=== PATIENT | male | born 1970 | race Caucasian/White ===

== ENCOUNTER → 2017-06-12 14:43 | Outpatient (CLI) | payer MEDICARE, SELFPAY ==
[2017-06-12 16:01] LABS: Absolute Lymphocyte Count 2.76 X10^3/ul (0.83-4.51); Absolute Neutrophil Count 3.3 X10^3/uL (2.0-7.7); Basophil# 0.03 X10^3/uL; Basophil% 0.4 % (0-1); Eosinophil# 0.12 X10^3/uL; Eosinophils% 1.7 % (0-5); Hematocrit 46.1 % (40-54); Lymphocyte # 2.76 X10^3/ul (4.0); Lymphocyte % 38.9 % (19-41); Mean Corp Hgb Conc 34.7 g/gl (32-36); Mean Corpuscular Hgb 27.7 pg (27.0-32.0); Mean Corpuscular Volume 79.9 fL (80-94); Mean Platelet Vol. 10.4 fl (6.2-12.0); Monocyte# 0.88 X10^3/uL; Monocyte% 12.4 % (0-10); Neutrophil % 46.5 % (47-70); Platelet Count 281 K/mm3 (150-450); RBC Distribution Width CV 13.3 % (11.6-14.6); RBC Distribution Width SD 38.4 fl (35.1-43.9); Red Blood Count 5.77 M/mm3 (4.6-6.2); White Blood Count 7.1 K/mm3 (4.4-11.0)
[2017-06-12 16:03] LABS: POSITIVE COUNT NO; POSITIVE DIFFERENTIAL NO; POSITIVE MORPHOLOGY NO
[2017-06-12 16:28] LABS: AST(SGOT) 20 U/L (15-37); Alanine Aminotransfer ALT/SGPT 34 U/L (16-61); Albumin, Serum 4.2 g/dL (3.2-5.0); Alkaline Phosphatase 63 U/L (45-117); Bilirubin, Direct 0.11 mg/dL (0.00-0.30); Globulin 3.3 g/dL (2.2-4.2); Protein, Total 7.5 g/dL (6.4-8.2)
== END ==
PROVIDERS: Family Provider Family Medicine; PCP Family Medicine; Visit Provider Family Medicine
DX: R10.11 Right upper quadrant pain (principal)
CPT/HCPCS: 36415; 80076; 85025

== ENCOUNTER → 2017-06-20 09:21 | Outpatient (CLI) | payer MEDICARE, SELFPAY ==
--- NOTE | 2017-06-20 09:23 | US_ITS ---
STUDY: ABDOMINAL ULTRASOUND - RIGHT UPPER QUADRANT REASON FOR VISIT: Male, 46 years old. Intermittent right upper quadrant pain TECHNIQUE: Ultrasound evaluation of the right upper quadrant was performed with real-time and static chandler-scale imaging. TECHNICAL QUALITY: Adequate. COMPARISON: None. FINDINGS: Liver: The liver measures 17 cm. There is increased echogenicity consistent with fatty infiltration. The bile ducts are within normal limits. There is hepatic color flow. The direction of portal flow is hepatopetal. There is no demonstrated mass lesion. Gallbladder: Normal distended gallbladder. The gallbladder wall measures 2.8 mm. There is a negative sonographic Buenrostro's sign. There is no pericholecystic fluid. There is a 0.6 x 0.5 cm density along the dependent wall but no wall most consistent with a gallbladder polyp. Common Bile Duct (C.B.D.): The common bile duct measures 4.2 mm. Pancreas: There is nonvisualization of the pancreas. Right Kidney: Normal size of the right kidney. The right kidney measures 12.5 x 5 x 6.5 cm. Normal renal cortex. The right cortex measures 1.9 cm. There is no demonstrated renal mass or cyst. There is no right hydronephrosis. US/Abdomen Limited IMPRESSION: Gallbladder the polyp without inflammation. Pancreas is obscured. Enlarged fatty liver. Electronically Signed: Karrie Pathak MD at 9:00 EDT , Service support ,
== END ==
PROVIDERS: Family Provider Family Medicine; PCP Family Medicine; Visit Provider Family Medicine
DX: R10.11 Right upper quadrant pain (principal)
CPT/HCPCS: 76705

== ENCOUNTER → 2018-11-26 | Outpatient (CLI) | payer OTHER, SELFPAY ==
[2018-04-21 12:37] VITALS: BMI 34.5
--- NOTE | 2018-11-26 18:23 | RAD_ITS ---
STUDY: X-RAY CHEST REASON FOR EXAM: Male, 48 years old. Pneumonia TECHNIQUE: Frontal and lateral views COMPARISON: None. FINDINGS: The lungs are clear and expanded. There is no demonstrated pleural abnormality. Normal size heart. Normal mediastinum and olvin. Normal visualized pulmonary arteries. Normal visualized aortic arch and descending thoracic aorta. Degenerative changes of the thoracic spine. Normal visualized ribs, clavicles, and shoulders. There is no demonstrated abnormality of the visualized soft tissue structures of the upper abdomen. RAD/Chest PA and Lateral IMPRESSION: Normal x-ray examination of the chest. Electronically Signed: Parish Rivera DO at 18:50 EDT Tel [phone], Service support ,
== END | disposition home or self-care (01) ==
LOC: RAD 18:06
PROVIDERS: Family Provider Family Medicine; PCP Family Medicine; Referring Provider Family Medicine; Visit Provider Family Medicine
DX: J18.9 Pneumonia, unspecified organism (principal)
CPT/HCPCS: 71046

== ENCOUNTER → 2020-02-22 08:43 | Outpatient (CLI) | payer OTHER, SELFPAY ==
[2019-04-21 11:32] VITALS: BMI 34.5
--- NOTE | 2020-02-22 08:50 | RAD_ITS ---
INDICATION: mid back pain EXAMINATION/TECHNIQUE: X-RAY - XR Spine Thoracic 3 Views COMPARISON: FINDINGS: VERTEBRAE: Preserved vertebral body height. No fracture. No spondylolisthesis. A mild thoracic kyphosis is identified.. 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 DISCS: Disc spaces are maintained. RAD/Thoracic Spine 3 Views IMPRESSION: DISH noted involving the mid and lower thoracic spine, with a mild lower thoracic kyphosis. Electronically Signed: Lenin Meléndez, at 11:44 EST Tel , Service support ,
[2020-02-22 10:23] LABS: Absolute Lymphocyte Count 1.65 X10^3/uL (0.83-4.51); Absolute Neutrophil Count 4.6 X10^3/uL (2.0-7.7); Basophil# 0.05 X10^3/uL; Basophil% 0.7 % (0-1); Eosinophil# 0.16 X10^3/uL; Eosinophils% 2.2 % (0-5); Hematocrit 48.7 % (40-54); Hemoglobin 16.2 g/dL (13.0-16.5); Lymphocyte # 1.65 X10^3/ul (4.0); Lymphocyte % 22.6 % (19-41); Mean Corp Hgb Conc 33.3 g/dL (32-36); Mean Corpuscular Volume 84.1 fL (80-94); Mean Platelet Vol. 10.7 fl (6.2-12.0); Monocyte# 0.79 X10^3/uL; Monocyte% 10.8 % (0-10); NRBC Flagged by Analyzer 0 % (0-5); Neutrophil # 4.63 X10^3/uL (2.7-7.7); Neutrophil % 63.3 % (47-70); Platelet Count 241 K/mm3 (150-450); RBC Distribution Width CV 13.1 % (11.6-14.6); RBC Distribution Width SD 39.8 fl (35.1-43.9); Red Blood Count 5.79 M/mm3 (4.6-6.2); White Blood Count 7.3 K/mm3 (4.4-11.0)
[2020-02-22 10:43] LABS: ALB/GLOB Ratio 1.2 RATIO (0.9-2.4); AST(SGOT) 18 U/L (15-37); Alanine Aminotransfer ALT/SGPT 34 U/L (16-61); Albumin, Serum 4.2 g/dL (3.2-5.0); Alkaline Phosphatase 75 U/L (45-117); Anion Gap 4 (5-15); BUN 10 mg/dL (7-18); BUN/Creat Ratio 10.8 RATIO (10-20); Calcium,Total 9.3 mg/dL (8.5-10.1); Chloride 106 mmol/L (98-107); Cholesterol 195 mg/dL (200); Creatinine, Serum 0.92 mg/dL (0.70-1.30); EST Glomerular Filtration Rate 93 mL/min (>60); Est Glom Filt Rate - Afr Amer 113 mL/min (>60); Globulin 3.4 g/dL (2.2-4.2); Glucose 92 mg/dL (74-106); High Density Lipoprotein 42 mg/dL; Magnesium 2.2 mg/dL (1.6-2.6); Potassium 3.9 mmol/L (3.5-5.1); Protein, Total 7.6 g/dL (6.4-8.2); Sodium Level 141 mmol/L (136-145); Triglycerides 168 mg/dL; Very Low Density Lipoprotein 34 mg/dL (5-40)
== END ==
PROVIDERS: PCP Family Medicine; Referring Provider Family Medicine; Visit Provider Family Medicine
DX: M54.6 Pain in thoracic spine (principal); E78.5 Hyperlipidemia, unspecified; Z51.81 Encounter for therapeutic drug level monitoring
CPT/HCPCS: 36415; 72072; 80053; 80061; 83735; 85025

== ENCOUNTER → 2022-04-09 | Outpatient (CLI) | payer BC, SELFPAY | END | disposition home or self-care (01) | PROVIDERS: PCP Family Medicine; Visit Provider Family Medicine | DX: Z20.828 Contact with and (suspected) exposure to other viral communicable diseases (principal) | CPT/HCPCS: 87635; U0003; U0005 ==

== ENCOUNTER → 2022-04-18 | Outpatient (CLI) | payer BC, SELFPAY ==
[2022-04-18 15:38] LABS: Absolute Lymphocyte Count 2.94 X10^3/uL (0.83-4.51); Absolute Neutrophil Count 5.2 X10^3/uL (2.0-7.7); Basophil# 0.08 X10^3/uL; Basophil% 0.8 % (0-1); Eosinophil# 0.22 X10^3/uL; Eosinophils% 2.3 % (0-5); Hematocrit 51.4 % (40-54); Lymphocyte # 2.94 X10^3/ul (0.83-4.51); Lymphocyte % 30.9 % (19-41); Mean Corp Hgb Conc 33.1 g/dL (32-36); Mean Corpuscular Hgb 26.9 pg (27.0-32.0); Mean Corpuscular Volume 81.3 fL (80-94); Mean Platelet Vol. 10.6 fl (6.2-12.0); Monocyte# 1.03 X10^3/uL; Monocyte% 10.8 % (0-10); NRBC Flagged by Analyzer 0 % (0-5); Neutrophil # 5.19 X10^3/uL (2.7-7.7); Neutrophil % 54.6 % (47-70); Platelet Count 319 K/mm3 (150-450); RBC Distribution Width SD 37.9 fl (35.1-43.9); Red Blood Count 6.32 M/mm3 (4.6-6.2); White Blood Count 9.5 K/mm3 (4.4-11.0)
[2022-04-18 16:36] LABS: Hemoglobin A1c 5.6 % (3.8-5.6)
[2022-04-18 18:10] LABS: ALB/GLOB Ratio 1.2 RATIO (0.9-2.4); AST(SGOT) 20 U/L (15-37); Alanine Aminotransfer ALT/SGPT 39 U/L (16-61); Albumin, Serum 4.3 g/dL (3.2-5.0); Alkaline Phosphatase 84 U/L (45-117); Anion Gap 8 (5-15); BUN 11 mg/dL (7-18); BUN/Creat Ratio 11.6 RATIO (10-20); Calcium,Total 9.4 mg/dL (8.5-10.1); Chloride 103 mmol/L (98-107); Cholesterol 204 mg/dL (200); Creatinine, Serum 0.95 mg/dL (0.70-1.30); EST Glomerular Filtration Rate 89 mL/min (>60); Est Glom Filt Rate - Afr Amer 108 mL/min (>60); Globulin 3.7 g/dL (2.2-4.2); Glucose 87 mg/dL (74-106); High Density Lipoprotein 36 mg/dL; Potassium 3.8 mmol/L (3.5-5.1); Sodium Level 138 mmol/L (136-145); Thyroid Stim Hormone (TSH) 2.55 uIU/mL (0.358-3.74); Triglycerides 246 mg/dL; Very Low Density Lipoprotein 49 mg/dL (5-40)
== END | disposition home or self-care (01) ==
LOC: BFHLAB 13:26
PROVIDERS: PCP Family Medicine; Visit Provider Family Medicine
DX: Z00.00 Encounter for general adult medical examination without abnormal findings (principal); R53.83 Other fatigue
CPT/HCPCS: 36415; 80053; 80061; 83036; 84443; 85025

== ENCOUNTER → 2022-05-06 | Outpatient (CLI) | payer BC, SELFPAY ==
[2022-05-06] MEDS: Zolpidem Tartrate 5 MG Tablet PO (22:37)
== END | disposition home or self-care (01) ==
LOC: SL 20:11
PROVIDERS: PCP Family Medicine; Referring Provider Family Medicine; Visit Provider Family Medicine
DX: G47.33 Obstructive sleep apnea (adult) (pediatric) (principal)
CPT/HCPCS: 95811

== ENCOUNTER → 2022-05-30 | Outpatient (CLI) | payer BC, SELFPAY ==
--- NOTE | 2022-05-30 10:15 | RAD_ITS ---
STUDY: X-RAY - CERVICAL SPINE REASON FOR EXAM: Male, 51 years old. Chronic neck pain, hx DISH TECHNIQUE: 6 view(s) of the cervical spine were obtained. COMPARISON: None FINDINGS: There are degenerative changes of the anterior atlantoaxial articulation. 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 There is multilevel spondylosis. At the level of C5-C6 C6-C7 there are large anteriorly located osteophytes. On the oblique view right greater than left there is visualized C3-C4 and C5-C6 C6-C7 neural foraminal narrowing. There is no apparent acute loss of height or alignment. There is straightening of the normal cervical lordosis. There is multi-level endplate spondylosis. There is multi-level degenerative disc disease with multilevel disc space narrowing. The soft tissue structures are unremarkable. RAD/Cerv Spine 4 or 5 Views IMPRESSION: Multilevel degenerative change of visualized acute loss of height or alignment.. Narrowing of the right greater than left neural foramen. Electronically Signed: Pearl Olmedo MD at 7:54 EST Reading Location ID and State: [facility] / [place] Tel , Service support ,
== END | disposition home or self-care (01) ==
LOC: MTRAD 10:13
PROVIDERS: PCP Family Medicine; Referring Provider Family Medicine; Visit Provider Family Medicine
DX: M54.2 Cervicalgia (principal); G89.29 Other chronic pain
CPT/HCPCS: 72050

== ENCOUNTER → 2023-07-24 | Outpatient (CLI) | payer BC, SELFPAY ==
[2023-07-24 17:43] LABS: Absolute Lymphocyte Count 3.11 X10^3/uL (0.83-4.51); Absolute Neutrophil Count 4.7 X10^3/uL (2.0-7.7); Basophil# 0.08 X10^3/uL; Basophil% 0.9 % (0-1); Eosinophil# 0.16 X10^3/uL; Eosinophils% 1.8 % (0-5); Hematocrit 49.5 % (40-54); Hemoglobin 16.4 g/dL (13.0-16.5); Lymphocyte # 3.11 X10^3/ul (0.83-4.51); Lymphocyte % 34.1 % (19-41); Mean Corp Hgb Conc 33.1 g/dL (32-36); Mean Corpuscular Hgb 26.7 pg (27.0-32.0); Mean Corpuscular Volume 80.6 fL (80-94); Mean Platelet Vol. 10.2 fl (6.2-12.0); Monocyte# 1.01 X10^3/uL; Monocyte% 11.1 % (0-10); NRBC Flagged by Analyzer 0 % (0-5); Neutrophil # 4.71 X10^3/uL (2.7-7.7); Neutrophil % 51.7 % (47-70); Platelet Count 335 K/mm3 (150-450); RBC Distribution Width CV 13.2 % (11.6-14.6); Red Blood Count 6.14 M/mm3 (4.6-6.2); White Blood Count 9.1 K/mm3 (4.4-11.0)
[2023-07-24 18:09] LABS: Hemoglobin A1c 5.5 % (3.8-5.6)
[2023-07-24 18:45] LABS: ALB/GLOB Ratio 1.1 RATIO (0.9-2.4); AST(SGOT) 21 U/L (15-37); Alanine Aminotransfer ALT/SGPT 32 U/L (16-61); Albumin, Serum 4.2 g/dL (3.2-5.0); Alkaline Phosphatase 76 U/L (45-117); Anion Gap 10 (5-15); BUN 12 mg/dL (7-18); BUN/Creat Ratio 12.7 RATIO (10-20); Calcium,Total 9.4 mg/dL (8.5-10.1); Chloride 102 mmol/L (98-107); Cholesterol 210 mg/dL (200); Creatinine, Serum 0.95 mg/dL (0.70-1.30); EST Glomerular Filtration Rate 89 mL/min (>60); Est Glom Filt Rate - Afr Amer 108 mL/min (>60); Globulin 3.7 g/dL (2.2-4.2); Glucose 99 mg/dL (74-106); High Density Lipoprotein 35 mg/dL; PSA,Total - Annual Screen 0.72 ng/mL (0.00-4.00); Potassium 3.4 mmol/L (3.5-5.1); Protein, Total 7.9 g/dL (6.4-8.2); Sodium Level 137 mmol/L (136-145); Triglycerides 313 mg/dL; Very Low Density Lipoprotein 63 mg/dL (5-40)
== END | disposition home or self-care (01) ==
LOC: BFHLAB 16:31
PROVIDERS: PCP Family Medicine; Visit Provider Family Medicine
DX: Z00.00 Encounter for general adult medical examination without abnormal findings (principal); Z12.5 Encounter for screening for malignant neoplasm of prostate
CPT/HCPCS: 36415; 80053; 80061; 83036; 84153; 85025; G0103

== ENCOUNTER → 2024-12-13 | Outpatient (CLI) | payer BC, SELFPAY ==
[2024-12-13 15:27] LABS: Hematocrit 47.9 % (40-54); Hemoglobin 15.8 g/dL (13.0-16.5); Immature Granulocytes Count 0.030 X10^3/uL (0.0-0.0); Mean Corp Hgb Conc 33.0 g/dL (32-36); Mean Corpuscular Volume 80.9 fL (80-94); Mean Platelet Vol. 10.1 fl (6.2-12.0); NRBC Flagged by Analyzer 0 % (0-5); Platelet Count 316 K/mm3 (150-450); RBC Distribution Width CV 13.1 % (11.6-14.6); RBC Distribution Width SD 38.2 fl (35.1-43.9); Red Blood Count 5.92 M/mm3 (4.6-6.2); White Blood Count 8.3 K/mm3 (4.4-11.0)
[2024-12-13 16:18] LABS: AST(SGOT) 24 U/L (<=37); Alanine Aminotransfer ALT/SGPT 26 U/L (<=46); Albumin, Serum 4.6 g/dL (3.5-5.0); Alkaline Phosphatase 72 U/L (40-129); Anion Gap 13 (5-15); BUN 14 mg/dL (4-19); BUN/Creat Ratio 16.4 RATIO (10-20); Calcium,Total 9.5 mg/dL (7.6-11.0); Carbon Dioxide 23.4 mmol/L (21.0-32.0); Chloride 102 mmol/L (98-108); Globulin 3.1 g/dL (2.2-4.2); Glucose 88 mg/dL (70-99); Potassium 3.8 mmol/L (3.3-5.1)
--- OUTSIDE RECORDS SUMMARY | 2024-12-13 22:54 | XMS RPT_ITS | CCD ---
Author Organization [facility] Care Team Providers Care Bar Helper Name Role Phone Hattie Singletonica L Unavailable Unavailable Karon Norwood CNP Unavailable Antonio BREAST SPLITTER, Adelaida Kylah Unavailable Unavaila ble NO REFERRING DR Unavailable Unavailable HOUSE MED, RAZACK Unavailable Unavailable HOUSE MED, RAZACK Unavailable Unavailable AZZAM, RAED Unavailable Unavailable PATEL, BUD I Unavailable Unavailable Schuyler Singletonssica L Unavailable Unavailable Schuyler Singletonssica L Unavailable Unavailable Dr. Hellen Zamora Referring Provider Cuco GARAGE DOOR OPENER INSTALLER, GARAGE DOOR OPENER INSTALLER-C Karon Attending Provider [phone] Dr. Avery Berry Primary Care Provider Dr. Avery Berry Primary Care Provider [phone] Dr. Avery Berry Referring Provider [phone] Dr. Jorge Matamoros Attending Provider [phone] Jorge Matamoros Attending Unavailable Avery Berry Referring Unavailable Avery eBrry Primary Care Unavailable Avery Berry Attending Unavailable Avery Berry Primary Care Unavailable HELLEN ZAMORA Primary Care Unavailable Hellen Zamora DO Primary Care Provider DR HELLEN ZAMORA DO Primary Care Physician DR HELLEN ZAMORA DO Primary Care Unavailable SONIDO DOWNEY MD Attending Unavailable Medications Current Medications Medication Drug Class(es) Dates Sig (Normalized) Sig (Original) [id number] 200 actuat albuterol 0.09 mg/actuat metered dose inhaler (1 source) beta2-Adrenergic Agonist Start: 11-10-19 19 take 2 puff(s) by inhalation every six hours as needed for wheezing albuterol HFA (PROAIR HFA) 90 mcg/actuation inhaler Indications: Pneumonia of left lower lobe due to infectious organism Inhale 2 Puffs as instructed every 6 hours as needed for Wheezing/Shortness of Breath. 1 Inhaler 0 11/09/2018 Active amoxicillin 500 mg / clavulanate 125 mg oral tablet (1 source) Penicillin-class Antibacterial Start: 05-16-19 End: 05-21-19 take 1 tablet by mouth every eight hours amoxicillin-clavulanat e 500 mg-125 mg oral tablet 1 tab(s), Oral, q8h, X 5 day(s), # 15 tab(s), 0 Refill(s), 05/21/24 10:33:00 AM EST, 103.2 Start Date: 05/16/24 Stop Date: 05/21/24 Status: Ordered Quantity: 15.0 Unit: tab(s) Repeat number: 1 aspirin 81 mg oral tablet (1 source) Platelet Aggregation Inhibitor, Nonsteroidal Anti-inflammatory Drug Start: 10-24-19 aspirin Dose : 81 mg =, Oral, qDayM, 0 Refill(s) Start Date: 10/23/20 Status: Ordered Repeat number: 1 cephalexin 500 mg oral capsule (1 source) Cephalosporin Antibacterial Start: 10-26-19 End: 11-02-19 24 take 1 capsule by mouth three times daily cephALEXin (KEFLEX) 500 mg capsule Indications: Cellulitis of right ear Take 1 capsule by mouth three times a day for 7 days. 21 capsule 0 10/26/2023 11/02/2023 Active diazePAM 5 mg oral tablet (1 source) Benzodiazepine Start: 07-15-19 24 take 1-2 tablets by mouth every hour diazePAM (VALIUM) 5 mg tablet TAKE 1-2 TAB BY MOUTH A SINGLE DOSE ONE-HOUR PRIOR TO MRI FOR CLAUSTROPHOBIA 0 07/15/2023 Active doxycycline monohydrate 100 mg oral capsule (1 source) Tetracycline-clas s Drug Start: 11-10-19 19 take 1 capsule by mouth twice daily doxycycline monohydrate (MONODOX) 100 mg capsule Indications: Pneumonia of left lower lobe due to infectious organism Take 1 capsule by mouth twice daily. 20 capsule 0 11/09/2018 Active hydroCHLOROthiazide 25 mg oral tablet (3 sources) Thiazide Diuretic Start: 08-27-19 24 take 1 tablet by mouth once hydroCHLOROthiazide 25 mg tablet Take 1 tablet by mouth every afternoon. 0 08/27/2023 Active Start: 05-29-2022 take 25 mg by mouth once daily Hydrochlorothiazide Active 25 MG PO DAILY May 29, 2022 1:00am losartan potassium 25 mg oral tablet (1 source) Angiotensin 2 Receptor Brandon Start: 08-01-2023 take 1 tablet by mouth once losartan (COZAAR) 25 mg tablet Take 1 tablet by mouth every afternoon. 0 08/01/2023 Active ofloxacin 3 mg/ml otic solution (1 source) Quinolone Antimicrobial Start: 10-26-2023 End: 11-02-2023 ofloxacin (FLOXIN) 0.3 % otic solution Indications: Acute otitis externa of right ear, unspecified type Use 10 Drops in both ears once daily for 7 days. 5 mL 0 10/26/2023 11/02/2023 Active turmeric extract 500 mg oral capsule (1 source) Start: 10-22-2020 take 1 capsule by mouth once daily as needed for pain turmeric 500 mg oral capsule 1 cap, Oral, Daily, PRN Pain, 0 Refill(s) Start Date: 10/22/20 Status: Ordered Repeat number: 1 Completed/Discontinued Medications Medication Drug Class(es) Dates Sig (Normalized) Sig (Original) cyclobenzaprine hydrochloride 5 mg oral tablet (15 sources) Muscle Relaxant Start: 04-10-2017 End: 05-29-2021 Cyclobenzaprine Discontinued 0 PO THREE TIMES A DAY April 21, 2018 1:43pm May 29, 2021 8:15am 5-10 mg PO TID PRN Start: 01-09-2017 take 1-2 tablets by mouth every eight hours as needed for muscle spasms CYCLOBENZAPRINE HCL 5 MG TABS 1-2 tabs by mouth every 8 hours as needed for muscle spasm CYCLOBENZAPRINE HCL [id number] Adelaida Antonio BREAST SPLITTER fluticasone propionate 0.05 mg/actuat metered dose nasal spray (5 sources) Corticosteroid Start: 04-21-2017 End: 04-21-2018 take 1 spray(s) nasal route once daily Fluticasone Propionate (Flonase Allergy Relief) 50 mcg/actuation spray,suspension Discontinued 2 SPRAY INTRANASAL daily April 21, 2017 1:00am April 21, 2018 1:43pm administer into each nostril hydroCHLOROthiazide 12.5 mg / lisinopril 20 mg oral tablet (11 sources) Thiazide Diuretic, Angiotensin Converting Enzyme Inhibitor Start: 04-10-2017 End: 05-29-2021 take 1 tablet by mouth once daily Lisinopril-Hydrochl orothiazide Discontinued 1 TABLET PO daily April 10, 2017 1:00am May 29, 2021 8:15am Start: 01-09-2017 lisinopril-hyd rochlorothiazide (PRINZIDE,ZESTORETIC) 20-12.5 mg per tablet TAKE 1 TABLET EVERY DAY 0 01/09/2017 Active Drug Treatment Unknown - unk nown (1 source) No information a vailable. Problems Active Problems Problem Classification Problem Date Documented Da te Episodic/Chronic Anxiety disorders (1 source) Anxiety disorder, unspecified; Translations: [ANXIETY DISORDER UNSPECI] Onset: 03-21-2016 Chronic Blindness and vision defects (1 source) Unqualified visual loss, left eye, normal vision right eye; Translations: [UNQUALIFIED VISUAL LOSS] Onset: 03-21-2016 Chronic Cardiac dysrhythmias (1 source) Palpitations 10-30-2020 Episodic Disorders of lipid metabolism (2 sources) Hyperlipidemia, unspecified; Translations: [Dyslipidemia] Onset: 03-21-2016 12-15-2020 Chronic Essential hypertension (4 sources) Hypertensive disorder; Translations: [Essential (primary) hypertension] Onset: 03-21-2016 01-21-2017 Chronic Open wounds of extremities (1 source) Open bite of unspecified hand, initial encounter; Translations: [Open bite of unspecified hand, initial encounter] Onset: 05-16-2024 Episodic Other ear and sense organ disorders (1 source) Acute otitis externa of right ear; Translations: [Unspecified acute noninfective otitis externa, right ear] 10-26-2023 Episodic Other ear and sense organ disorders (1 source) Otitis; Translations: [Cellulitis of right external ear] 10-26-2023 Episodic Other nutritional; endocrine; and metabolic disorders (9 sources) Obesity; Translations: [Obesity, unspecified] Onset: 01-20-2017 01-20-2017 Chronic Other nutritional; endocrine; and metabolic disorders (2 sources) Obesity, unspecified; Translations: [Obesity, unspecified] 05-29-2022 Chronic Stacy-; endo-; and myocarditis; cardiomyopathy (except that caused by tuberculosis or sexually transmitted disease) (1 source) Aortic valve vegetations 10-30-2020 Episodic Residual codes; unclassified (6 sources) Obstructive sleep apnea syndrome; Translations: [Obstructive sleep apnea (adult) (pediatric)] 04-21-2017 Chronic Residual codes; unclassified (2 sources) Obstructive sleep apnea (adult) (pediatric); Translations: [Obstructive sleep apnea (adult)(pediatric)] 05-29-2022 Chronic Transient cerebral ischemia (1 source) Transient cerebral ischemia 10-30-2020 Chronic Unclassified (2 sources) No current problems or disability 12-25-2016 Unclassified (1 source) Prediabetes; Translations: [PREDIABETES] Onset: 03-21-2016 Past or Other Problems Problem Classification Problem Date Documented Da te Episodic/Chronic Blindness and vision defects (3 sources) Unspecified visual disturbance; Translations: [Other visual disturbances] Onset: 03-21-2016 Episodic Headache, including migraine (1 source) Headache; Translations: [HEADACHE] Onset: 03-21-2016 Episodic Other hematologic conditions (1 source) Secondary polycythemia; Translations: [SECONDARY POLYCYTHEMIA] Onset: 03-21-2016 Episodic Residual codes; unclassified (5 sources) Hypersomnia; Translations: [Disorientation, unspecified] Onset: 03-21-2016 01-20-2017 Episodic Results Test Name Value Interpretation Reference Range Facility Absolute lymphocyte countOrd ered By: vAery Berry on 07-24-2023 Lymphocytes Auto (Unsp spec) [#/Vol] 3.11 10*3/uL 0.83-4.51 [facility] Automated lymphocyte count a s percentage of total leukocytesOrdered By: Avery Berry on 07-24-2023 Lymphocytes/100 WBC Auto (Unsp spec) 34.1 % 19-41 [facility] Basophil percentageOrdered B y: Avery Berry on 07-24-2023 Basophils/100 WBC (Bld) 0.9 % 0-1 [facility] Bilirubin [Mass/Vol] 0.60 mg/dL 0.20-1.00 [facility] Comment on above: For patients on eltr ombopag therapy, use of Dimension [place] TBIL is not recommended. Chloride [Moles/Vol] 102 mmol/L 98-107 [facility] Cholesterol [Mass/Vol] 210 mg/dL <200 [facility] Comment on above: <200 mg/dL Desirable 200-240 mg/dL Borderline >240 mg/dL High Risk Eosinophils/100 WBC (Bld) 1.8 % 0-5 [facility] Glucose [Mass/Vol] 99 mg/dL 74-106 [facility] Hemoglobin (Bld) [Mass/Vol] 16.4 g/dL 13.0-16.5 [facility] Monocytes/100 WBC (Bld) 11.1 % 0-10 [facility] Neutrophils (Bld) [#/Vol] 4.7 10*3/uL 2.0-7.7 [facility] Neutrophils/100 WBC (Bld) 51.7 % 47-70 [facility] Potassium [Moles/Vol] 3.4 mmol/L 3.5-5.1 [facility] Protein [Mass/Vol] 7.9 g/dL 6.4-8.2 [facility] Sodium [Moles/Vol] 137 mmol/L 136-145 [facility] Triglyceride [Mass/Vol] 313 mg/dL <199 [facility] Comment on above: The drugs N-Acetylcy steine and Metamizole may falsely depress this assay.Serum Triglycerides Reference Interval Normal <150 mg/dL Borderline high 150 - 199 mg/dL High 200 - 499 mg/dL Very High > or = 500 mg/dL WBC (Bld) [#/Vol] 9.1 10*3/uL 4.4-11.0 [facility] CBC W/Diff, Automatedon 06-30 Absolute Lymph 3.11 X10 3/uL Normal 0.83-4.51 [facility] Comment on above: Performed By: #### L 500.4050, L500.4100, L100.0100, L501.9985, L501.9910 #### [facility] [address] [place], [address] Absolute Neut 4.7 X10 3/uL Normal 2.0-7.7 [facility] Comment on above: Performed By: #### L 500.4050, L500.4100, L100.0100, L501.9985, L501.9910 #### [facility] [address] [place], [address] Basophils/100 WBC (Bld) 0.9 % Normal 0-1 [facility] Comment on above: Performed By: #### L 500.4050, L500.4100, L100.0100, L501.9985, L501.9910 #### [facility] [address] [place], [address] Eosinophils/100 WBC (Bld) 1.8 % Normal 0-5 [facility] Comment on above: Performed By: #### L 500.4050, L500.4100, L100.0100, L501.9985, L501.9910 #### [facility] [address] [place], [address] Erythrocyte distribution width (RBC) [Ratio] 13.2 % Normal 11.6-14.6 [facility] Comment on above: Performed By: #### L 500.4050, L500.4100, L100.0100, L501.9985, L501.9910 #### [facility] [address] [place] [place], [address] Hematocrit (Bld) [Volume fraction] 49.5 % Normal 40-54 [facility] Comment on above: Performed By: #### L 500.4050, L500.4100, L100.0100, L501.9985, L501.9910 #### [facility] [address] [place], [address] Hemoglobin (Bld) [Mass/Vol] 16.4 g/dL Normal 13.0-16.5 [facility] Comment on above: Performed By: #### L 500.4050, L500.4100, L100.0100, L501.9985, L501.9910 #### [facility] [address] [place] [place], [address] IG% 0.400 Normal 0.0-0.9 [facility] Comment on above: Result Comment: IG% - Immature Granulocytes (promyelocytes, myelocytes and metamyelocytes) > 1% indicates that a LEFT SHIFT is Present. Performed By: #### L 500.4050, L500.4100, L100.0100, L501.9985, L501.9910 #### [facility] [address] [place], [address] Lymphocytes/100 WBC (Bld) 34.1 % Normal 19-41 [facility] Comment on above: Performed By: #### L 500.4050, L500.4100, L100.0100, L501.9985, L501.9910 #### [facility] [address] [place] [place], [address] MCH (RBC) [Entitic mass] 26.7 pg Low 27.0-32.0 [facility] Comment on above: Performed By: #### L 500.4050, L500.4100, L100.0100, L501.9985, L501.9910 #### [facility] [address] [place], [address] MCHC (RBC) [Mass/Vol] 33.1 g/dL Normal 32-36 [facility] Comment on above: Performed By: #### L 500.4050, L500.4100, L100.0100, L501.9985, L501.9910 #### [facility] [address] [place], [address] MCV (RBC) [Entitic vol] 80.6 fL Normal 80-94 [facility] Comment on above: Performed By: #### L 500.4050, L500.4100, L100.0100, L501.9985, L501.9910 #### [facility] [address] [place], [address] Monocytes/100 WBC (Bld) 11.1 % High 0-10 [facility] Comment on above: Performed By: #### L 500.4050, L500.4100, L100.0100, L501.9985, L501.9910 #### [facility] [address] [place], [address] Neutrophils/100 WBC (Bld) 51.7 % Normal 47-70 [facility] Comment on above: Performed By: #### L 500.4050, L500.4100, L100.0100, L501.9985, L501.9910 #### [facility] [address] [place], [address] Nucleated RBC (Bld) [#/Vol] 0 10*3/uL Normal 0-5 [facility] Comment on above: Performed By: #### L 500.4050, L500.4100, L100.0100, L501.9985, L501.9910 #### [facility] [address] [place], [address] Platelet mean volume (Bld) [Entitic vol] 10.2 fL Normal 6.2-12.0 [facility] Comment on above: Performed By: #### L 500.4050, L500.4100, L100.0100, L501.9985, L501.9910 #### [facility] [address] [place], [address] Platelets (Bld) [#/Vol] 335 10*3/uL Normal 150-450 [facility] Comment on above: Performed By: #### L 500.4050, L500.4100, L100.0100, L501.9985, L501.9910 #### [facility] [address] [place], [address] RBC (Bld) [#/Vol] 6.14 10*6/uL Normal 4.6-6.2 [facility] Comment on above: Performed By: #### L 500.4050, L500.4100, L100.0100, L501.9985, L501.9910 #### [facility] [address] [place], [address] RDW SD 38.0 fl Normal 35.1-43.9 [facility] Comment on above: Performed By: #### L 500.4050, L500.4100, L100.0100, L501.9985, L501.9910 #### [facility] [address] [place], [address] WBC (Bld) [#/Vol] 9.1 10*3/uL Normal 4.4-11.0 [facility] Comment on above: Performed By: #### L 500.4050, L500.4100, L100.0100, L501.9985, L501.9910 #### [facility] [address] [place], [address] Comprehensive Metabolic Prof ilon 07-24-2023 Albumin [Mass/Vol] 4.2 g/dL Normal 3.2-5.0 [facility] Comment on above: Performed By: #### L 500.4050, L500.4100, L100.0100, L501.9985, L501.9910 #### [facility] [address] [place], [address] Albumin/Globulin [Mass ratio] 1.1 {ratio} Normal 0.9-2.4 [facility] Comment on above: Performed By: #### L 500.4050, L500.4100, L100.0100, L501.9985, L501.9910 #### [facility] [address] [place], [address] ALK P 76 U/L Normal 45-117 [facility] Comment on above: Performed By: #### L 500.4050, L500.4100, L100.0100, L501.9985, L501.9910 #### [facility] [address] [place], [address] ALT [Catalytic activity/Vol] 32 U/L Normal 16-61 [facility] Comment on above: Performed By: #### L 500.4050, L500.4100, L100.0100, L501.9985, L501.9910 #### [facility] [address] [place], [address] AST [Catalytic activity/Vol] 21 U/L Normal 15-37 [facility] Comment on above: Performed By: #### L 500.4050, L500.4100, L100.0100, L501.9985, L501.9910 #### [facility] [address] [place], [address] Bilirubin [Mass/Vol] 0.60 mg/dL Normal 0.20-1.00 [facility] Comment on above: Result Comment: For patients on eltrombopag therapy, use of Dimension [place] TBIL is not recommended. Performed By: #### L 500.4050, L500.4100, L100.0100, L501.9985, L501.9910 #### [facility] [address] [place], [address] BUN/CRE 12.7 RATIO Normal 10-20 [facility] Comment on above: Performed By: #### L 500.4050, L500.4100, L100.0100, L501.9985, L501.9910 #### [facility] [address] [place], [address] CA,Total 9.4 mg/dL Normal 8.5-10.1 [facility] Comment on above: Performed By: #### L 500.4050, L500.4100, L100.0100, L501.9985, L501.9910 #### [facility] [address] [place], [address] Chloride [Moles/Vol] 102 mmol/L Normal 98-107 [facility] Comment on above: Performed By: #### L 500.4050, L500.4100, L100.0100, L501.9985, L501.9910 #### [facility] [address] [place], [address] CO2 [Moles/Vol] 25.0 mmol/L Normal 21.0-32.0 [facility] Comment on above: Performed By: #### L 500.4050, L500.4100, L100.0100, L501.9985, L501.9910 #### [facility] [address] [place], [address] Creatinine [Mass/Vol] 0.95 mg/dL Normal 0.70-1.30 [facility] Comment on above: Result Comment: The validity of the calculated GFR GFRAA in patients over 70 years has not been determined. Clinical correlation is essential. Performed By: #### L 500.4050, L500.4100, L100.0100, L501.9985, L501.9910 #### [facility] [address] [place], [address] EST GFR - AA 108 mL/min Normal >60 [facility] Comment on above: Result Comment: Afri can Qatari GFR Calc Performed By: #### L 500.4050, L500.4100, L100.0100, L501.9985, L501.9910 #### [facility] [address] [place], [address] GAP 10 Normal 5-15 [facility] Comment on above: Performed By: #### L 500.4050, L500.4100, L100.0100, L501.9985, L501.9910 #### [facility] [address] [place], [address] GFR/1.73 sq M.predicted among non-blacks MDRD (S/P/Bld) [Vol rate/Area] 89 mL/min/{1.73_m2} Normal >60 [facility] Comment on above: Result Comment: Non- GFR Calc Performed By: #### L 500.4050, L500.4100, L100.0100, L501.9985, L501.9910 #### [facility] [address] [place], [address] Globulin (S) [Mass/Vol] 3.7 g/dL Normal 2.2-4.2 [facility] Comment on above: Performed By: #### L 500.4050, L500.4100, L100.0100, L501.9985, L501.9910 #### [facility] [address] [place], [address] Glucose [Mass/Vol] 99 mg/dL Normal 74-106 [facility] Comment on above: Performed By: #### L 500.4050, L500.4100, L100.0100, L501.9985, L501.9910 #### [facility] [address] [place], [address] Potassium [Moles/Vol] 3.4 mmol/L Low 3.5-5.1 [facility] Comment on above: Performed By: #### L 500.4050, L500.4100, L100.0100, L501.9985, L501.9910 #### [facility] [address] [place], [address] Sodium [Moles/Vol] 137 mmol/L Normal 136-145 [facility] Comment on above: Performed By: #### L 500.4050, L500.4100, L100.0100, L501.9985, L501.9910 #### [facility] [address] [place], [place], [address] T PROT 7.9 g/dL Normal 6.4-8.2 [facility] Comment on above: Performed By: #### L 500.4050, L500.4100, L100.0100, L501.9985, L501.9910 #### [facility] [address] [place], [address] Urea nitrogen [Mass/Vol] 12 mg/dL Normal 7-18 [facility] Comment on above: Performed By: #### L 500.4050, L500.4100, L100.0100, L501.9985, L501.9910 #### [facility] [address] [place], [place], [id number] Determination of erythrocyte mean corpuscular volume (MCV)Ordered By: Avery Berry on 07-24-2023 MCV (RBC) [Entitic vol] 80.6 fL 80-94 [facility] Erythrocyte distribution wid th ratioOrdered By: Avery Berry on 07-24-2023 Erythrocyte distribution width (RBC) [Ratio] 13.2 % 11.6-14.6 [facility] Erythrocyte distribution wid th standard deviationOrdered By: Avery Berry on 07-24-2023 Erythrocyte distribution width (RBC) [Entitic vol] 38.0 fL 35.1-43.9 [facility] Hematocrit Auto (Bld) [Volum e fraction]Ordered By: Avery Berry on 07-24-2023 Hematocrit (Bld) [Volume fraction] 49.5 % 40-54 [facility] Hemoglobin A1con 07-24-2023 HbA1c (Bld) [Mass fraction] 5.5 % Normal 3.8-5.6 [facility] Comment on above: Result Comment: Norm al < 5.7 % Prediabetic 5.7 - 6.4 % Diabetic >or= 6.5 % Please note range changes. Performed By: #### L 500.4050, L500.4100, L100.0100, L501.9985, L501.9910 #### [facility] [address] [place], [address] Immature granulocytes/100 WB C Auto (Bld)Ordered By: Avery Berry on 07-24-2023 Immature granulocytes/100 WBC (Bld) 0.400 % 0.0-0.9 [facility] Comment on above: IG% - Immature Granu locytes (promyelocytes, myelocytes and metamyelocytes) > 1% indicates that a LEFT SHIFT is Present. Laboratory - Chemistry and C hemistry - challengeOrdered By: Avery Berry on 07-24-2023 Albumin/Globulin [Mass ratio] 1.1 {ratio} 0.9-2.4 [facility] ALP [Catalytic activity/Vol] 76 U/L 45-117 [facility] ALT [Catalytic activity/Vol] 32 U/L 16-61 [facility] Cholesterol in HDL [Mass/Vol] 35 mg/dL >40 [facility] Comment on above: The drugs N-Acetylcy steine and Metamizole may falsely depress this assay. Reference Range HDL <40 mg/dL Low HDL Cholesterol HDL >or= 60 mg/dL High HDL Cholesterol Cholesterol in LDL [Mass/Vol] 112 mg/dL 0-130 [facility] CO2 [Moles/Vol] 25.0 mmol/L 21.0-32.0 [facility] Globulin (S) [Mass/Vol] 3.7 g/dL 2.2-4.2 [facility] Urea nitrogen/Creatinine [Mass ratio] 12.7 mg/mg 10-20 [facility] Laboratory - Hematology and Cell countsOrdered By: Avery Berry on 07-24-2023 MCH (RBC) [Entitic mass] 26.7 pg 27.0-32.0 [facility] MCHC (RBC) [Mass/Vol] 33.1 g/dL 32-36 [facility] Nucleated RBC/100 WBC (Bld) [Ratio] 0 % 0-5 [facility] Platelet mean volume (Bld) [Entitic vol] 10.2 fL 6.2-12.0 [facility] Platelets (Bld) [#/Vol] 335 10*3/uL 150-450 [facility] Lipid Profileon 07-24-2023 Cholesterol [Mass/Vol] 210 mg/dL High 200 [facility] Comment on above: Result Comment: <200 mg/dL Desirable 200-240 mg/dL Borderline >240 mg/dL High Risk Performed By: #### L 500.4050, L500.4100, L100.0100, L501.9985, L501.9910 #### [facility] Laboratory [address] [place], [address] Cholesterol in HDL [Mass/Vol] 35 mg/dL Low [facility] Comment on above: Result Comment: The drugs N-Acetylcysteine and Metamizole may falsely depress this assay. Reference Range HDL <40 mg/dL Low HDL Cholesterol HDL >or= 60 mg/dL High HDL Cholesterol Performed By: #### L 500.4050, L500.4100, L100.0100, L501.9985, L501.9910 #### [facility] [address] [place], [address] Cholesterol in LDL [Mass/Vol] 112 mg/dL Normal 0-130 [facility] Comment on above: Performed By: #### L 500.4050, L500.4100, L100.0100, L501.9985, L501.9910 #### [facility] [address] [place], [address] Cholesterol in VLDL [Mass/Vol] 63 mg/dL High 5-40 [facility] Comment on above: Performed By: #### L 500.4050, L500.4100, L100.0100, L501.9985, L501.9910 #### [facility] [address] [place], [address] Triglyceride [Mass/Vol] 313 mg/dL High [facility] Comment on above: Result Comment: The drugs N-Acetylcysteine and Metamizole may falsely depress this assay. Serum Triglycerides Reference Interval Normal <150 mg/dL Borderline high 150 - 199 mg/dL High 200 - 499 mg/dL Very High > or = 500 mg/dL Performed By: #### L 500.4050, L500.4100, L100.0100, L501.9985, L501.9910 #### [facility] [address] [place], [place], [id number] No Panel InformationOrdered By: Avery Berry on 07-24-2023 Estimated GFR (MDRD) Amer 108 mL/min >60 [facility] Comment on above: GFR Calc Estimated GFR (MDRD) Non-Af Amer 89 mL/min >60 [facility] Comment on above: Non- GFR Calc Prostate Specific Antigen Screen 0.72 ng/mL 0.00-4.00 [facility] Comment on above: This test was perfor med using the TPSA assay method for the[employer] chemistry system. Values obtained with differentassay methods cannot be used interchangably.When changing PSA assays in the course of monitoring apatient, additional sequential testing should be carriedout to confirm baseline values. VLDL Cholesterol 63 mg/dL 5-40 [facility] PSA,Total - Annual Screenon 07-24-2023 PSA,TOT SCREEN 0.72 ng/mL Normal 0.00-4.00 [facility] Comment on above: Result Comment: This test was performed using the TPSA assay method for the [employer] chemistry system. Values obtained with different assay methods cannot be used interchangably. When changing PSA assays in the course of monitoring a patient, additional sequential testing should be carried out to confirm baseline values. Performed By: #### L 500.4050, L500.4100, L100.0100, L501.9985, L501.9910 #### [facility] [address] [place], [place], [id number] RBC Auto (Bld) [#/Vol]Ordere d By: Avery Berry on 07-24-2023 RBC (Bld) [#/Vol] 6.14 10*6/uL 4.6-6.2 [facility] Serum or plasma calcium yessi urement (mass/volume)Ordered By: Avery Berry on 07-24-2023 Calcium [Mass/Vol] 9.4 mg/dL 8.5-10.1 [facility] Serum or plasma creatinine m easurement (mass/volume)Ordered By: Avery Berry on 07-24-2023 Creatinine [Mass/Vol] 0.95 mg/dL 0.70-1.30 [facility] Comment on above: The validity of the calculated GFR & GFRAA in patients over 70 years has not been determined. Clinical correlation is essential. Serum or plasma urea nitroge n measurement (mass/volume)Ordered By: Avery Berry on 07-24-2023 Urea nitrogen [Mass/Vol] 12 mg/dL 7-18 [facility] Thin prep Papanicolaou smear with manual screeningOrdered By: Avery Berry on 07-24-2023 Thin prep Papanicolaou smear with manual screening 4.2 g/dL 3.2-5.0 [facility] Thin prep Papanicolaou smear with manual screening 21 U/L 15-37 [facility] Thin prep Papanicolaou smear with manual screening 10 5-15 [facility] Whole blood hemoglobin A1c/t otal hemoglobin ratio (mass fraction)Ordered By: Avery Berry on 07-24-2023 HbA1c (Bld) [Mass fraction] 5.5 % 3.8-5.6 [facility] Comment on above: Normal < 5.7 % Predi abetic 5.7 - 6.4 % Diabetic >or= 6.5 % Please note range changes. Pulmonary Visit Reporton Pulmonary Visit Report [facility] of [address] [place] [address] OFFICE VISIT Date of Service: 06/10/23 MR#: [id number] Acct: [id number] Name: KARLOS DING Rep #: [id number] : 1970 Provider: Dr. Jorge Matamoros DO Age/Sex: 52/M Location: [facility] [place].PMW Status: Signed Assessment and Plan Assessment and Plan (1) MICHAEL (obstructive sleep apnea): Status: Chronic Plan: The patient remains controlled from a sleep apnea perspective on his CPAP at a pressure support of 9 cm of water. (2) Obesity: Status: Chronic Plan: Weight loss through dietary modification and a graded exercise regimen was strongly encouraged. Plan Details Follow Up: 1 Year HPI HPI Comments Details: The patient is a 52-year-old male who participated in a telephone follow-up office visit due to underlying obstructive sleep apnea. If you recall, the patient was initially seen in December 2016 after he was referred for evaluation of obstructive sleep apnea. The patient subsequently completed a split-night sleep study in December 2016. His overall AHI was noted to be 30 events per hour. It was recommended that he be placed on nasal CPAP with a pressure setting of 9 cm of water with medication. He is currently utilizing a full facemask and [facility] is his current DME provider. The patient's nocturnal compliance report was personally reviewed at today's office visit. Over the last 30 days, the patient has demonstrated an overall compliance rate of 100%. He is currently utilizing his nocturnal CPAP therapy on average 6.5 hours nightly. He has a residual AHI of 1.1. Today, the patient reports ongoing compliance with his nocturnal CPAP therapy. He does report that he is dealing with a fluctuating weight and persistent anxiety, but continues to tolerate his CPAP as well. In general, he does report feeling rested upon awakening in the morning and denies significant daytime hypersomnolence or regular napping. Intake Vital Signs 05/29/22 08:23 06/10/23 06:26 Height 5 ft 10 in 5 ft 10 in Weight: 232 lb BMI 33.3 BP 160/101 H Blood Pressure Location Rt brachial Position Sitting Respiration 16 Pulse 94 Pulse Source Monitor Temp 98.2 F Temperature Source Temporal Artery Pulse Oximetry (%) 96 Oxygen Delivery Method room air Intake Visit Reasons: 1 Y FU DME Vendor: [email or web address] Accompanied by: Self Allergies No Known Allergies Allergy (Verified 06/10/23 09:17) Medications hydrochlorothiazide 25 mg tablet 25 mg PO DAILY 05/29/22 [History Confirmed 06/10/23] PFSH Medical History Back problem Headache HTN (hypertension) Hypersomnia Neck pain Nevus Obesity Obesity MICHAEL (obstructive sleep apnea) URI (upper respiratory infection) Weight loss Witnessed apneic spells Family History Mother Hypertension Father Hypertension Pancreatitis Social History Smoking Status: Never smoker second hand exposure: No alcohol intake: never substance use type: does not use Review of Systems Resp Respiratory: Yes as per HPI Exam Const Constitutional: Positive conversant, cooperative, in no acute respiratory distress, well developed, well nourished, good hygiene and obese Head Head: Yes normocephalic and Yes atraumatic Eyes Eye: Positive clear conjunctiva; Negative nystagmus or scleral abnormality Ears Ear: Positive hearing normal and external ears normal Nose Nose: Yes external nose normal Mouth Mouth: Positive oral mucosae normal Neck Neck: Positive normal visual inspection and trachea midline; Negative lymphadenopathy Chest Wall Chest: Positive symmetric chest movement Normal AP diameter. Resp lung sounds: Positive clear to auscultation and good air exchange; Negative wheezes, rhonchi or rales Cardio Cardiac: Positive regular rate, regular rhythm, S1 normal and S2 normal; Negative murmur, rub or gallop GI GI: Positive normal bowel sounds and obese Soft without distention Genitourinary: Positive deferred Musc Musculoskeletal: Positive steady gait Skin Pulmonary Skin Exam: Positive intact; Negative lesion, rash, ulcers or dermal atrophy Extremities Extremities: No clubbing, No cyanosis and No edema Neuro Neurologic: Yes no focal neuro deficits, Yes conversant and Yes cooperative Lymph Lymphatic: No lymphadenopathy Psych Appearance: Positive grossly normal Mental Status: Positive mental status grossly normal Mood: Positive congruent mood Affect: Positive normal affect Coding Level of Care Code Off vis,est,level 3 Diagnoses MICHAEL (obstructive sleep apnea) G47.33 Obesity E66.9 06/10/23 0941 Date (more content not included)... Normal [facility] Absolute lymphocyte countOrd ered By: Dr. Zamora on 04-18-2022 Lymphocytes Auto (Unsp spec) [#/Vol] 2.94 10*3/uL 0.83-4.51 [facility] Basophil percentageOrdered B y: Dr. Zamora on 04-18-2022 Basophils/100 WBC (Bld) 0.8 % 0-1 [facility] Bilirubin [Mass/Vol] 0.40 mg/dL 0.20-1.00 [facility] Comment on above: For patients on eltr ombopag therapy, use of Dimension [place] TBIL is not recommended. Chloride [Moles/Vol] 103 mmol/L 98-107 [facility] Cholesterol [Mass/Vol] 204 mg/dL <200 [facility] Comment on above: <200 mg/dL Desirable 200-240 mg/dL Borderline >240 mg/dL High Risk Eosinophils/100 WBC (Bld) 2.3 % 0-5 [facility] Glucose [Mass/Vol] 87 mg/dL 74-106 [facility] Neutrophils (Bld) [#/Vol] 5.2 10*3/uL 2.0-7.7 [facility] Neutrophils/100 WBC (Bld) 54.6 % 47-70 [facility] Potassium [Moles/Vol] 3.8 mmol/L 3.5-5.1 [facility] Protein [Mass/Vol] 8.0 g/dL 6.4-8.2 [facility] Sodium [Moles/Vol] 138 mmol/L 136-145 [facility] Triglyceride [Mass/Vol] 246 mg/dL <199 [facility] Comment on above: The drugs N-Acetylcy steine and Metamizole may falsely depress this assay.Serum Triglycerides Reference Interval Normal <150 mg/dL Borderline high 150 - 199 mg/dL High 200 - 499 mg/dL Very High > or = 500 mg/dL WBC (Bld) [#/Vol] 9.5 10*3/uL 4.4-11.0 [facility] Blood erythrocytes count (nu mber/volume)Ordered By: Dr. Zamora on 04-18-2022 RBC (Bld) [#/Vol] 6.32 10*6/uL 4.6-6.2 [facility] Blood hemoglobin measurement (mass/volume)Ordered By: Dr. Zamora on 04-18-2022 Hemoglobin (Bld) [Mass/Vol] 17.0 g/dL 13.0-16.5 [facility] Blood lymphocytes/100 leukoc ytesOrdered By: Dr. Zamora on 04-18-2022 Lymphocytes/100 WBC (Bld) 30.9 % 19-41 [facility] Blood monocytes/100 leukocyt esOrdered By: Dr. Zamora on 04-18-2022 Monocytes/100 WBC (Bld) 10.8 % 0-10 [facility] Blood platelet mean volumeOr dered By: Dr. Zamora on 04-18-2022 Platelet mean volume (Bld) [Entitic vol] 10.6 fL 6.2-12.0 [facility] Determination of erythrocyte mean corpuscular volume (MCV)Ordered By: Dr. Zamora on 04-18-2022 MCV (RBC) [Entitic vol] 81.3 fL 80-94 [facility] Hematocrit Auto (Bld) [Volum e fraction]Ordered By: Dr. Zamora on 04-18-2022 Hematocrit (Bld) [Volume fraction] 51.4 % 40-54 [facility] Laboratory - Chemistry and C hemistry - challengeOrdered By: Dr. Zamora on 04-18-2022 ALP [Catalytic activity/Vol] 84 U/L 45-117 [facility] ALT [Catalytic activity/Vol] 39 U/L 16-61 [facility] CO2 [Moles/Vol] 27.0 mmol/L 21.0-32.0 [facility] Globulin (S) [Mass/Vol] 3.7 g/dL 2.2-4.2 [facility] Urea nitrogen/Creatinine [Mass ratio] 11.6 mg/mg 10-20 [facility] Laboratory - Hematology and Cell countsOrdered By: Dr. Zamora on 04-18-2022 Erythrocyte distribution width (RBC) [Entitic vol] 37.9 fL 35.1-43.9 [facility] Erythrocyte distribution width (RBC) [Ratio] 13.0 % 11.6-14.6 [facility] Immature granulocytes/100 WBC (Bld) 0.600 % 0.0-0.9 [facility] Comment on above: IG% - Immature Granu locytes (promyelocytes, myelocytes and metamyelocytes) > 1% indicates that a LEFT SHIFT is Present. MCH (RBC) [Entitic mass] 26.9 pg 27.0-32.0 [facility] Nucleated RBC/100 WBC (Bld) [Ratio] 0 % 0-5 [facility] MCHC Auto (RBC) [Mass/Vol]Or dered By: Dr. Zamora on 04-18-2022 MCHC (RBC) [Mass/Vol] 33.1 g/dL 32-36 [facility] No Panel InformationOrdered By: Dr. Zamora on 04-18-2022 Estimated GFR (MDRD) Amer 108 mL/min >60 [facility] Comment on above: GFR Calc Estimated GFR (MDRD) Non-Af Amer 89 mL/min >60 [facility] Comment on above: Non- GFR Calc Thyroid Stimulating Hormone (TSH) 2.55 uIU/mL 0.358-3.74 [facility] Platelets bldOrdered By: Dr. Zamora on 04-18-2022 Platelets (Bld) [#/Vol] 319 10*3/uL 150-450 [facility] Serum or plasma albumin yessi urement (mass/volume)Ordered By: Dr. Zamora on 04-18-2022 Albumin [Mass/Vol] 4.3 g/dL 3.2-5.0 [facility] Serum or plasma albumin/glob ulin mass ratioOrdered By: Dr. Zamora on 04-18-2022 Albumin/Globulin [Mass ratio] 1.2 {ratio} 0.9-2.4 [facility] Serum or plasma calcium yessi urement (mass/volume)Ordered By: Dr. Zamora on 04-18-2022 Calcium [Mass/Vol] 9.4 mg/dL 8.5-10.1 [facility] Serum or plasma cholesterol in HDL measurement (mass/volume)Ordered By: Dr. Zamora on 04-18-2022 Cholesterol in HDL [Mass/Vol] 36 mg/dL >40 [facility] Comment on above: The drugs N-Acetylcy steine and Metamizole may falsely depress this assay. Reference Range HDL <40 mg/dL Low HDL Cholesterol HDL >or= 60 mg/dL High HDL Cholesterol Serum or plasma cholesterol in VLDL measurement (mass/volume)Ordered By: Dr. Zamora on 04-18-2022 Cholesterol in VLDL [Mass/Vol] 49 mg/dL 5-40 [facility] Serum or plasma creatinine m easurement (mass/volume)Ordered By: Dr. Zamora on 04-18-2022 Creatinine [Mass/Vol] 0.95 mg/dL 0.70-1.30 [facility] Comment on above: The validity of the calculated GFR & GFRAA in patients over 70 years has not been determined. Clinical correlation is essential. Serum or plasma low density lipoprotein (LDL) cholesterol measurement (mass/volume)Ordered By: Dr. Zamora on 04-18-2022 Cholesterol in LDL [Mass/Vol] 119 mg/dL 0-130 [facility] Serum or plasma urea nitroge n measurement (mass/volume)Ordered By: Dr. Zamora on 04-18-2022 Urea nitrogen [Mass/Vol] 11 mg/dL 7-18 [facility] Thin prep Papanicolaou smear with manual screeningOrdered By: Dr. Zamora on 04-18-2022 Thin prep Papanicolaou smear with manual screening 20 U/L 15-37 [facility] Thin prep Papanicolaou smear with manual screening 8 5-15 [facility] Whole blood hemoglobin A1c/t otal hemoglobin ratio (mass fraction)Ordered By: Dr. Zamora on 04-18-2022 HbA1c (Bld) [Mass fraction] 5.6 % 3.8-5.6 [facility] Comment on above: Normal < 5.7 % Predi abetic 5.7 - 6.4 % Diabetic >or= 6.5 % Please note range changes. Laboratory - Microbiology an d Antimicrobial susceptibilityOrdered By: Dr. Zamora on 04-09-2022 SARS-CoV-2 (COVID-19) RNA SHANTA+probe Ql (Unsp spec) Not detected Not Detect [facility] Comment on above: Normal Reference Ran ge: Not DetectedMethod:(RT-PCR) real-time reverse transcriptase PCRLuminex CLEMENT Instrument*The Food and Drug Administration (FDA) has issued an Emergency Use Authorization (EAU) for the CLEMENT SARS-CoV-2 Assay for the rapid detection of the virus that causes COVID-19. This test has been validated, but the FDAs independent review of this validation is pending.*Negative results do not preclude infection and should not be used as the sole basis for treatment or patient management. Optimum specimen types and timing for peak viral levels during infections caused by SARS-CoV-2 have not been determined. Collection of multiple specimens from the same patient may be necessary to detect the virus. The possibility of a false negative result should be considered if the patient has clinical presentation or has had recent exposure. MISCon 11-02-2020 Misc. Send Out See Comments Normal [facility] ([place]) Comment on above: Order Comment: HLA B -27 Result Comment: Carie hinsone reference lab report scanned to EMR. Performed By: #### A DIFF, ANEU, CBC, BMP, LIPID #### [place] [id number] #### GFR #### [place] [id number] CCPon 11-01-2020 Cyclic Citrullinated Peptide <20.0 Normal <=20.0 [facility] ([place]) Comment on above: Result Comment: Cycl ic Citrullinated IgG Interpretation: Result Units Negative <20 Weak Positive 20-39 Moderate Positive 40-59 Strong Positive >=60 A positive result indicates the presence of IgG anti-CCP3 antibodies and suggests the possibility of RA. A negative result indicates no CCP3 antibody or levels below the negative cut-off of the assay. Results of this assay should be used in conjunction with clinical findings and other serological tests. These test results were obtained with the [employer] Quanta Lite CCP3 IgG TONYA. Anti-CCP values obtained with different manufacturers' assay methods may not be used interchangeably. Performed By: #### A DIFF, ANEU, CBC, BMP, LIPID #### [place] [id number] #### GFR #### [place] [address] RFon 10-29-2020 Rheumatoid Factor <6.0 Normal <=6.0 [facility] ([place]) Comment on above: Result Comment: RF I gM Antibody by Enzyme Immunoassay: Negative < or = 6 Positive > 6 A positive result indicates the presence of RF antibodies and suggests the possibility of rheumatoid arthritis. A negative result indicates no RF IgM antibody or levels below the negative cut-off of the assay. Results of this assay should be used in conjunction with clinical findings and other serological tests. These results were obtained with the [employer] QUANTA Lite RF IgM TONYA. RF IgM values obtained with different manufacturers' assay methods may not be used interchangeably. The magnitude of the reported IgM levels cannot be correlated to an endpoint titer. Performed By: #### A DIFF, ANEU, CBC, BMP, LIPID #### [address] [id number] #### GFR #### [address] [address] .ANATon 10-27-2020 PATO Pattern 1 Speckled Normal [facility] ([place]) Comment on above: Result Comment: At A [place], an PATO titer of less than 160 is not considered suggestive of significant rheumatoid disease. If clinical suspicion is high, suggest repeat testing in 1-2 months. Performed By: #### A DIFF, ANEU, CBC, BMP, LIPID #### [address] [id number] #### GFR #### [place] [address] PATO Titer 1 40 Normal [facility] ([place]) Comment on above: Performed By: #### A DIFF, ANEU, CBC, BMP, LIPID #### [address] [id number] #### GFR #### [place] [address] ANAon 10-27-2020 PATO See Titer Normal Neg 40 [facility] ([place]) Comment on above: Result Comment: PATO Screen and Titer methodology is an immunofluorescent technique utilizing Hep2 Substrate. Performed By: #### A DIFF, ANEU, CBC, BMP, LIPID #### [address] [id number] #### GFR #### [place] [id number] .GFRon 10-26-2020 GFR Non- 103 ml/min/1.73sqm Normal [facility] ([place]) Comment on above: Result Comment: GFR Population mean for , Non- Americans Ages 20-29 = 116 mL/min/1.73 sq.m. Ages 30-39 = 107 mL/min/1.73 sq.m. Ages 40-49 = 99 mL/min/1.73 sq.m. Ages 50-59 = 93 mL/min/1.73 sq.m. Ages 60-69 = 85 mL/min/1.73 sq.m. Ages 70+ = 75 mL/min/1.73 sq.m. Chronic Kidney Disease: Less than 60 mL/min/1.73 square meters End Stage Renal Disease: Less than 15 mL/min/1.73 square meters Performed By: #### A DIFF, ANEU, CBC, BMP, LIPID #### [address] [address] #### GFR #### [address] [address] GFR 125 ml/min/1.73sqm Normal [facility] ([place]) Comment on above: Result Comment: GFR Population mean for , Non- Americans Ages 20-29 = 116 mL/min/1.73 sq.m. Ages 30-39 = 107 mL/min/1.73 sq.m. Ages 40-49 = 99 mL/min/1.73 sq.m. Ages 50-59 = 93 mL/min/1.73 sq.m. Ages 60-69 = 85 mL/min/1.73 sq.m. Ages 70+ = 75 mL/min/1.73 sq.m. Chronic Kidney Disease: Less than 60 mL/min/1.73 square meters End Stage Renal Disease: Less than 15 mL/min/1.73 square meters Performed By: #### A DIFF, ANEU, CBC, BMP, LIPID #### [place] [address] #### GFR #### [address] [address] CMPon 10-26-2020 Albumin Level 4.5 G/dL Normal 3.5-5.0 [facility] ([place]) Comment on above: Performed By: #### A DIFF, ANEU, CBC, BMP, LIPID #### [address] [address] #### GFR #### [address] [address] Albumin/Globulin [Mass ratio] 1.5 {ratio} Normal 1.1-2.5 [facility] ([place]) Comment on above: Performed By: #### A DIFF, ANEU, CBC, BMP, LIPID #### [address] [address] #### GFR #### [address] [address] ALP [Catalytic activity/Vol] 72 U/L Normal 40-135 [facility] ([place]) Comment on above: Performed By: #### A DIFF, ANEU, CBC, BMP, LIPID #### [address] [address] #### GFR #### [address] [address] ALT [Catalytic activity/Vol] 32 U/L Normal 16-63 [facility] ([place]) Comment on above: Performed By: #### A DIFF, ANEU, CBC, BMP, LIPID #### [place] [address] #### GFR #### [address] [address] AST [Catalytic activity/Vol] 22 U/L Normal 10-40 [facility] ([place]) Comment on above: Performed By: #### A DIFF, ANEU, CBC, BMP, LIPID #### [place] [address] #### GFR #### [address] [address] Bili Total 0.6 mg/dL Normal 0.2-1.0 [facility] ([place]) Comment on above: Result Comment: Use of this assay is not recommended for patients undergoing treatment with eltrombopag due to the potential for falsely elevated results. Performed By: #### A DIFF, ANEU, CBC, BMP, LIPID #### [place] [address] #### GFR #### [address] [address] BUN/Creatinine Ratio 16 ratio Normal 7-27 [facility] ([place]) Comment on above: Performed By: #### A DIFF, ANEU, CBC, BMP, LIPID #### [place] [address] #### GFR #### [address] [address] Calcium [Mass/Vol] 9.3 mg/dL Normal 8.4-10.2 [facility] ([place]) Comment on above: Performed By: #### A DIFF, ANEU, CBC, BMP, LIPID #### [address] [address] #### GFR #### [address] [address] Chloride [Moles/Vol] 103 mmol/L Normal 98-107 [facility] ([place]) Comment on above: Performed By: #### A DIFF, ANEU, CBC, BMP, LIPID #### [address] [address] #### GFR #### [place] [address] CO2 [Moles/Vol] 30 mmol/L High 22-29 [facility] ([place]) Comment on above: Performed By: #### A DIFF, ANEU, CBC, BMP, LIPID #### [place] [address] #### GFR #### [place] [address] Creatinine [Mass/Vol] 0.80 mg/dL Normal 0.70-1.30 [facility] ([place]) Comment on above: Performed By: #### A DIFF, ANEU, CBC, BMP, LIPID #### [address] [id number] #### GFR #### [place] [address] Electrolyte Balance 8.0 mEq/L Normal [facility] ([place]) Comment on above: Performed By: #### A DIFF, ANEU, CBC, BMP, LIPID #### [place] [address] #### GFR #### [place] [address] Globulin 3.1 G/dL Normal [facility] ([place]) Comment on above: Performed By: #### A DIFF, ANEU, CBC, BMP, LIPID #### [address] [address] #### GFR #### [address] [address] Glucose [Mass/Vol] 96 mg/dL Normal 70-105 [facility] ([place]) Comment on above: Performed By: #### A DIFF, ANEU, CBC, BMP, LIPID #### [address] [address] #### GFR #### [address] [address] Potassium [Moles/Vol] 4.4 mmol/L Normal 3.5-5.1 [facility] ([place]) Comment on above: Performed By: #### A DIFF, ANEU, CBC, BMP, LIPID #### [place] [address] #### GFR #### [address] [address] Sodium [Moles/Vol] 141 mmol/L Normal 136-145 [facility] ([place]) Comment on above: Performed By: #### A DIFF, ANEU, CBC, BMP, LIPID #### [place] [address] #### GFR #### [place] [address] Total Protein 7.6 G/dL Normal 6.4-8.2 [facility] ([place]) Comment on above: Performed By: #### A DIFF, ANEU, CBC, BMP, LIPID #### [place] [address] #### GFR #### [address] [address] Urea nitrogen [Mass/Vol] 13 mg/dL Normal 7-18 [facility] ([place]) Comment on above: Performed By: #### A DIFF, ANEU, CBC, BMP, LIPID #### [address] [address] #### GFR #### [address] [address] CRPon 10-26-2020 CRP [Mass/Vol] mg/L Normal 0.0-0.9 [facility] ([place]) Comment on above: Performed By: #### A DIFF, ANEU, CBC, BMP, LIPID #### [address] [address] #### GFR #### [address] [address] ESRon 10-26-2020 Erythrocyte Sed Rate 2 mm/hr Normal 0-15 [facility] ([place]) Comment on above: Performed By: #### A DIFF, ANEU, CBC, BMP, LIPID #### [address] [address] #### GFR #### [place] [address] XR SPINE LUMBAR AP/LAT/FLEX/ EXTon 10-26-2020 XR SPINE LUMBAR AP/LAT/FLEX/EXT ORIGINAL EXAMINATION: 5 X-RAY VIEWS OF THE LUMBAR SPINE10/26/2020 1:08 PM LUMBAR SPINE TECHNIQUE: Five views of lumbar spine. COMPARISON: None HISTORY: ORDERING SYSTEM PROVIDED HISTORY: DISH thoracic spine, chronic low back pain. Reason for Exam: low back pain FINDINGS: There are 5 lumbar type vertebral bodies present. There is a slight S-shaped curvature of lumbar spine noted on AP view. No dynamic instability of the lumbar spine is evident. Mild degenerative disc disease present at the level of L4-L5, L5-S1 and associated with endplate sclerosis and osteophyte formation. Vertebral body heights and disc spaces are maintained. Mild facet arthropathy is also seen at L4-L5, L5-S1. No evidence of acute compression deformity, dislocation or significant listhesis of lumbar spine. There is no evidence of degenerative change at bilateral sacroiliac joints. Sacrum and coccyx are partially visualized and appear to be grossly normal. The visualized pelvic ring is intact. IMPRESSION: 1. Mild degenerative disc disease of lower lumbar spine with facet arthropathy. No dynamic instability. 2. No impression of forming or significant listhesis. I have personally reviewed the images of this examination and agree with the resident's finding and interpretation. Interpreted by: Hamlet Fu Preliminary Report By: Lew Weaver Electronically signed By Hamlet Fu Dictated Date: 10/26/2020 1:19:36 PM Prelim Date: 10/26/2020 4:54:24 PM Sign Date: 10/26/2020 4:54:24 PM Ordering Provider: HELLEN Acosta [facility] ([place]) .Auto Diffon 10-23-2020 Basophil, Absolute 0.10 10 3/mcL Normal 0.00-0.19 [facility] ([place]) Comment on above: Performed By: #### A DIFF, ANEU, CBC, BMP, LIPID #### [place] [address] #### GFR #### [address] [address] Basophils/100 WBC (Bld) 0.8 % Normal 0.0-2.5 A [facility] ([place]) Comment on above: Performed By: #### A DIFF, ANEU, CBC, BMP, LIPID #### [place] [address] #### GFR #### [address] [address] Eosinophil, Absolute 0.20 10 3/mcL Normal 0.00-0.40 A [facility] ([place]) Comment on above: Performed By: #### A DIFF, ANEU, CBC, BMP, LIPID #### [place] [address] #### GFR #### [address] [address] Eosinophils/100 WBC (Bld) 2.8 % Normal 0.0-7.0 [facility] ([place]) Comment on above: Performed By: #### A DIFF, ANEU, CBC, BMP, LIPID #### [place] [address] #### GFR #### [address] [address] Lymphocyte, Absolute 2.30 10 3/mcL Normal 0.77-3.85 A [facility] ([place]) Comment on above: Performed By: #### A DIFF, ANEU, CBC, BMP, LIPID #### [place] [address] #### GFR #### [address] [address] Lymphocytes/100 WBC (Bld) 30.3 % Normal 10.0-50.0 [facility] ([place]) Comment on above: Performed By: #### A DIFF, ANEU, CBC, BMP, LIPID #### [address] [address] #### GFR #### [address] [address] Monocyte, Absolute 0.90 10 3/mcL Normal 0.15-1.00 [facility] ([place]) Comment on above: Performed By: #### A DIFF, ANEU, CBC, BMP, LIPID #### [address] [address] #### GFR #### [address] [address] Monocytes/100 WBC (Bld) 12.5 % Normal 1.7-13.0 A [facility] ([place]) Comment on above: Performed By: #### A DIFF, ANEU, CBC, BMP, LIPID #### [place] [address] #### GFR #### [address] [address] Neutrophils/100 WBC (Bld) 53.6 % Normal 37.0-80.0 [facility] ([place]) Comment on above: Performed By: #### A DIFF, ANEU, CBC, BMP, LIPID #### [place] [address] #### GFR #### [address] [address] .GFRon 10-23-2020 GFR 114 ml/min/1.73sqm Normal [facility] ([place]) Comment on above: Result Comment: GFR Population mean for , Non- Americans Ages 20-29 = 116 mL/min/1.73 sq.m. Ages 30-39 = 107 mL/min/1.73 sq.m. Ages 40-49 = 99 mL/min/1.73 sq.m. Ages 50-59 = 93 mL/min/1.73 sq.m. Ages 60-69 = 85 mL/min/1.73 sq.m. Ages 70+ = 75 mL/min/1.73 sq.m. Chronic Kidney Disease: Less than 60 mL/min/1.73 square meters End Stage Renal Disease: Less than 15 mL/min/1.73 square meters Performed By: #### A DIFF, ANEU, CBC, BMP, LIPID #### [place] [address] #### GFR #### [address] [address] GFR Non- 94 ml/min/1.73sqm Normal [facility] ([place]) Comment on above: Result Comment: GFR Population mean for , Non- Americans Ages 20-29 = 116 mL/min/1.73 sq.m. Ages 30-39 = 107 mL/min/1.73 sq.m. Ages 40-49 = 99 mL/min/1.73 sq.m. Ages 50-59 = 93 mL/min/1.73 sq.m. Ages 60-69 = 85 mL/min/1.73 sq.m. Ages 70+ = 75 mL/min/1.73 sq.m. Chronic Kidney Disease: Less than 60 mL/min/1.73 square meters End Stage Renal Disease: Less than 15 mL/min/1.73 square meters Performed By: #### A DIFF, ANEU, CBC, BMP, LIPID #### [place] [id number] #### GFR #### [address] [address] .NEUABSon 10-23-2020 Neutrophil, Absolute 4.10 10 3/mcL Normal 2.85-6.16 A [facility] ([place]) Comment on above: Performed By: #### A DIFF, ANEU, CBC, BMP, LIPID #### [address] [address] #### GFR #### [address] [address] BMPon 10-23-2020 BUN/Creatinine Ratio 14 ratio Normal 7-27 [facility] ([place]) Comment on above: Performed By: #### A DIFF, ANEU, CBC, BMP, LIPID #### [address] [address] #### GFR #### [address] [address] Calcium [Mass/Vol] 9.1 mg/dL Normal 8.4-10.2 [facility] ([place]) Comment on above: Performed By: #### A DIFF, ANEU, CBC, BMP, LIPID #### [address] [address] #### GFR #### [address] [address] Chloride [Moles/Vol] 111 mmol/L High 98-107 [facility] ([place]) Comment on above: Performed By: #### A DIFF, ANEU, CBC, BMP, LIPID #### [place] [address] #### GFR #### [address] [address] CO2 [Moles/Vol] 27 mmol/L Normal 22-29 [facility] ([place]) Comment on above: Performed By: #### A DIFF, ANEU, CBC, BMP, LIPID #### [place] [address] #### GFR #### [address] [address] Creatinine [Mass/Vol] 0.87 mg/dL Normal 0.70-1.30 [facility] ([place]) Comment on above: Performed By: #### A DIFF, ANEU, CBC, BMP, LIPID #### [place] [address] #### GFR #### [address] [address] Electrolyte Balance 10.0 mEq/L Normal [facility] ([place]) Comment on above: Performed By: #### A DIFF, ANEU, CBC, BMP, LIPID #### [address] [address] #### GFR #### [address] [address] Glucose [Mass/Vol] 99 mg/dL Normal 70-105 [facility] ([place]) Comment on above: Performed By: #### A DIFF, ANEU, CBC, BMP, LIPID #### [address] [address] #### GFR #### [address] [address] Potassium [Moles/Vol] 4.6 mmol/L Normal 3.5-5.1 [facility] ([place]) Comment on above: Performed By: #### A DIFF, ANEU, CBC, BMP, LIPID #### [place] [address] #### GFR #### [address] [address] Sodium [Moles/Vol] 148 mmol/L High 136-145 [facility] ([place]) Comment on above: Performed By: #### A DIFF, ANEU, CBC, BMP, LIPID #### [place] [address] #### GFR #### [place] [address] Urea nitrogen [Mass/Vol] 12 mg/dL Normal 7-18 [facility] ([place]) Comment on above: Performed By: #### A DIFF, ANEU, CBC, BMP, LIPID #### [place] [address] #### GFR #### [address] [address] CBCon 10-23-2020 Erythrocyte distribution width (RBC) [Ratio] 13.2 % Normal 11.5-14.5 [facility] ([place]) Comment on above: Performed By: #### A DIFF, ANEU, CBC, BMP, LIPID #### [place] [address] #### GFR #### [address] [address] Hematocrit (Bld) [Volume fraction] 44.3 % Normal 42.0-52.0 [facility] ([place]) Comment on above: Performed By: #### A DIFF, ANEU, CBC, BMP, LIPID #### [address] [address] #### GFR #### [place] [address] Hgb 15.2 G/dL Normal 14.0-18.0 [facility] ([place]) Comment on above: Performed By: #### A DIFF, ANEU, CBC, BMP, LIPID #### [address] [address] #### GFR #### [place] [address] MCH (RBC) [Entitic mass] 29.0 pg Normal 27.0-31.2 [facility] ([place]) Comment on above: Performed By: #### A DIFF, ANEU, CBC, BMP, LIPID #### [place] [address] #### GFR #### [place] [address] MCHC 34.4 G/dL Normal 31.8-35.4 [facility] ([place]) Comment on above: Performed By: #### A DIFF, ANEU, CBC, BMP, LIPID #### [place] [address] #### GFR #### [place] [address] MCV (RBC) [Entitic vol] 84.3 fL Normal 80.0-94.0 A [facility] ([place]) Comment on above: Performed By: #### A DIFF, ANEU, CBC, BMP, LIPID #### [place] [address] #### GFR #### [place] [address] Platelet 224 10 3/mcL Normal 130-400 [facility] ([place]) Comment on above: Performed By: #### A DIFF, ANEU, CBC, BMP, LIPID #### [place] [address] #### GFR #### [place] [address] Platelet mean volume (Bld) [Entitic vol] 8.3 fL Normal 7.4-10.4 [facility] ([place]) Comment on above: Performed By: #### A DIFF, ANEU, CBC, BMP, LIPID #### [place] [address] #### GFR #### [place] [address] RBC 5.25 10 6/mcL Normal 4.04-6.13 [facility] ([place]) Comment on above: Performed By: #### A DIFF, ANEU, CBC, BMP, LIPID #### [place] [address] #### GFR #### [place] [address] WBC 7.50 10 3/mcL Normal 4.60-10.80 [facility] ([place]) Comment on above: Performed By: #### A DIFF, ANEU, CBC, BMP, LIPID #### [place] [address] #### GFR #### [place] [address] LIPIDon 10-23-2020 Cholesterol [Mass/Vol] 211 mg/dL High 0-200 [facility] ([place]) Comment on above: Result Comment: Chol esterol Reference Interval: Less than 200 Desirable 200-239 Borderline high risk 240 and above High risk Performed By: #### A DIFF, ANEU, CBC, BMP, LIPID #### [place] [address] #### GFR #### [place] [address] Cholesterol in HDL [Mass/Vol] 38 mg/dL Low 40-60 [facility] ([place]) Comment on above: Performed By: #### A DIFF, ANEU, CBC, BMP, LIPID #### [address] [address] #### GFR #### [address] [address] Cholesterol in LDL [Mass/Vol] 142 mg/dL High 0-130 [facility] ([place]) Comment on above: Performed By: #### A DIFF, ANEU, CBC, BMP, LIPID #### [address] [address] #### GFR #### [address] [address] Triglyceride [Mass/Vol] 155 mg/dL High 0-150 A [facility] ([place]) Comment on above: Result Comment: Trig lyceride Reference Interval: Less than 150 Normal 150-199 Borderline high risk 200-499 High risk 500 or higher Very high risk Performed By: #### A DIFF, ANEU, CBC, BMP, LIPID #### [address] [address] #### GFR #### [address] [address] MRI BRAIN W/O CONTRASTon MRI BRAIN W/O CONTRAST ORIGINAL EXAMINATION: MR Brain without intravenous contrast TECHNIQUE: MRI examination of the brain was obtained utilizing the following sequences: Sagittal T1-weighted, axial T2 FLAIR GRE and diffusion with ADC mapping images. COMPARISON: Comparison. HISTORY: ORDERING SYSTEM PROVIDED HISTORY: cva Reason for Exam: Reported CVA, left-sided in extremity tingling, dizziness, high blood pressure. FINDINGS: Parenchyma: No acute intracranial hemorrhage, midline shift, mass effect or acute ischemic infarct is demonstrated. The chandler-white matter junctions are preserved. No space occupying intra-axial masses or extra-axial fluid collections are seen. There are few minimal T2 FLAIR signal hyperintensities in the subcortical and deep white matter. Ventricles: No ventricular enlargement or ventricular effacement. Orbits: Normal. Major intracranial flow voids: Preserved. Paranasal sinuses: There are couple of small mucous retention cysts in the maxillary sinuses. Otherwise the paranasal air sinuses are predominantly clear. Mastoids and middle ears: Clear. Bones: Normal. Extracranial soft tissues: Normal. Additional comment: None. IMPRESSION: There are few small scattered foci of T2 FLAIR signal hyperintensities in the subcortical and deep white matter. Diagnostic considerations include mild chronic microvascular white matter ischemic disease, chronic migraines, and the sequela of a remote infectious, inflammatory, or vascular insult.. Otherwise unremarkable examination. I have personally reviewed this examination and agree with the report. Interpreted by: Jonatan De Preliminary Report By: Lenin Mireles Electronically signed By Jonatan De Dictated Date: 10/23/2020 10:36:39 AM Prelim Date: 10/23/2020 10:58:16 AM Sign Date: 10/23/2020 10:58:16 AM Ordering Provider: ELISA Acosta [facility] ([place]) .Auto Diffon 10-22-2020 Basophil, Absolute 0.10 10 3/mcL Normal 0.00-0.19 [facility] ([place]) Comment on above: Performed By: #### A DIFF, ANEU, TROPHS, CBC, BMP #### [place] [address] #### GFR #### [address] [address] Basophils/100 WBC (Bld) 0.7 % Normal 0.0-2.5 A [facility] ([place]) Comment on above: Performed By: #### A DIFF, ANEU, TROPHS, CBC, BMP #### [place] [address] #### GFR #### [address] [address] Eosinophil, Absolute 0.20 10 3/mcL Normal 0.00-0.40 A [facility] ([place]) Comment on above: Performed By: #### A DIFF, ANEU, TROPHS, CBC, BMP #### [place] [address] #### GFR #### [address] [address] Eosinophils/100 WBC (Bld) 2.7 % Normal 0.0-7.0 [facility] ([place]) Comment on above: Performed By: #### A DIFF, ANEU, TROPHS, CBC, BMP #### [place] [address] #### GFR #### [address] [address] Lymphocyte, Absolute 3.30 10 3/mcL Normal 0.77-3.85 A [facility] ([place]) Comment on above: Performed By: #### A DIFF, ANEU, TROPHS, CBC, BMP #### [address] [address] #### GFR #### [address] [address] Lymphocytes/100 WBC (Bld) 40.0 % Normal 10.0-50.0 [facility] ([place]) Comment on above: Performed By: #### A DIFF, ANEU, TROPHS, CBC, BMP #### [place] [address] #### GFR #### [address] [address] Monocyte, Absolute 0.90 10 3/mcL Normal 0.15-1.00 [facility] ([place]) Comment on above: Performed By: #### A DIFF, ANEU, TROPHS, CBC, BMP #### [place] [address] #### GFR #### [address] [address] Monocytes/100 WBC (Bld) 11.1 % Normal 1.7-13.0 A [facility] ([place]) Comment on above: Performed By: #### A DIFF, ANEU, TROPHS, CBC, BMP #### [place] [address] #### GFR #### [address] [address] Neutrophils/100 WBC (Bld) 45.5 % Normal 37.0-80.0 [facility] ([place]) Comment on above: Performed By: #### A DIFF, ANEU, TROPHS, CBC, BMP #### [address] [address] #### GFR #### [address] [address] .GFRon 10-22-2020 GFR 108 ml/min/1.73sqm Normal [facility] ([place]) Comment on above: Result Comment: GFR Population mean for , Non- Americans Ages 20-29 = 116 mL/min/1.73 sq.m. Ages 30-39 = 107 mL/min/1.73 sq.m. Ages 40-49 = 99 mL/min/1.73 sq.m. Ages 50-59 = 93 mL/min/1.73 sq.m. Ages 60-69 = 85 mL/min/1.73 sq.m. Ages 70+ = 75 mL/min/1.73 sq.m. Chronic Kidney Disease: Less than 60 mL/min/1.73 square meters End Stage Renal Disease: Less than 15 mL/min/1.73 square meters Performed By: #### A DIFF, ANEU, CBC, BMP, LIPID #### [address] [address] #### GFR #### [address] [address] GFR Non- 89 ml/min/1.73sqm Normal [facility] ([place]) Comment on above: Result Comment: GFR Population mean for , Non- Americans Ages 20-29 = 116 mL/min/1.73 sq.m. Ages 30-39 = 107 mL/min/1.73 sq.m. Ages 40-49 = 99 mL/min/1.73 sq.m. Ages 50-59 = 93 mL/min/1.73 sq.m. Ages 60-69 = 85 mL/min/1.73 sq.m. Ages 70+ = 75 mL/min/1.73 sq.m. Chronic Kidney Disease: Less than 60 mL/min/1.73 square meters End Stage Renal Disease: Less than 15 mL/min/1.73 square meters Performed By: #### A DIFF, ANEU, CBC, BMP, LIPID #### [address] [address] #### GFR #### [address] [address] .NEUABSon 10-22-2020 Neutrophil, Absolute 3.80 10 3/mcL Normal 2.85-6.16 A [facility] ([place]) Comment on above: Performed By: #### A DIFF, ANEU, CBC, BMP, LIPID #### [address] [address] #### GFR #### [address] [address] BMPon 10-22-2020 BUN/Creatinine Ratio 11 ratio Normal 7-27 [facility] ([place]) Comment on above: Performed By: #### A DIFF, ANEU, CBC, BMP, LIPID #### [address] [address] #### GFR #### [address] [address] Calcium [Mass/Vol] 9.3 mg/dL Normal 8.4-10.2 [facility] ([place]) Comment on above: Performed By: #### A DIFF, ANEU, CBC, BMP, LIPID #### [address] [address] #### GFR #### [address] [address] Chloride [Moles/Vol] 106 mmol/L Normal 98-107 [facility] ([place]) Comment on above: Performed By: #### A DIFF, ANEU, CBC, BMP, LIPID #### [address] [address] #### GFR #### [address] [address] CO2 [Moles/Vol] 30 mmol/L High 22-29 [facility] ([place]) Comment on above: Performed By: #### A DIFF, ANEU, CBC, BMP, LIPID #### [address] [address] #### GFR #### [address] [address] Creatinine [Mass/Vol] 0.91 mg/dL Normal 0.70-1.30 [facility] ([place]) Comment on above: Performed By: #### A DIFF, ANEU, CBC, BMP, LIPID #### [address] [address] #### GFR #### [address] [address] Electrolyte Balance 9.0 mEq/L Normal [facility] ([place]) Comment on above: Performed By: #### A DIFF, ANEU, CBC, BMP, LIPID #### [address] [address] #### GFR #### [address] [address] Glucose [Mass/Vol] 96 mg/dL Normal 70-105 [facility] ([place]) Comment on above: Performed By: #### A DIFF, ANEU, CBC, BMP, LIPID #### [address] [address] #### GFR #### [address] [address] Potassium [Moles/Vol] 4.0 mmol/L Normal 3.5-5.1 [facility] ([place]) Comment on above: Performed By: #### A DIFF, ANEU, CBC, BMP, LIPID #### [address] [address] #### GFR #### [address] [address] Sodium [Moles/Vol] 145 mmol/L Normal 136-145 [facility] ([place]) Comment on above: Performed By: #### A DIFF, ANEU, CBC, BMP, LIPID #### [address] [address] #### GFR #### [address] [address] Urea nitrogen [Mass/Vol] 10 mg/dL Normal 7-18 [facility] ([place]) Comment on above: Performed By: #### A DIFF, ANEU, CBC, BMP, LIPID #### [address] [address] #### GFR #### [address] [address] CBCon 10-22-2020 Erythrocyte distribution width (RBC) [Ratio] 13.4 % Normal 11.5-14.5 [facility] ([place]) Comment on above: Performed By: #### A DIFF, ANEU, TROPHS, CBC, BMP #### [place] [address] #### GFR #### [place] [address] Hematocrit (Bld) [Volume fraction] 46.3 % Normal 42.0-52.0 [facility] ([place]) Comment on above: Performed By: #### A DIFF, ANEU, TROPHS, CBC, BMP #### [place] [address] #### GFR #### [place] [address] Hgb 16.0 G/dL Normal 14.0-18.0 [facility] ([place]) Comment on above: Performed By: #### A DIFF, ANEU, TROPHS, CBC, BMP #### [place] [address] #### GFR #### [place] [address] MCH (RBC) [Entitic mass] 28.7 pg Normal 27.0-31.2 [facility] ([place]) Comment on above: Performed By: #### A DIFF, ANEU, TROPHS, CBC, BMP #### [place] [address] #### GFR #### [place] [address] MCHC 34.6 G/dL Normal 31.8-35.4 [facility] ([place]) Comment on above: Performed By: #### A DIFF, ANEU, TROPHS, CBC, BMP #### [place] [address] #### GFR #### [place] [address] MCV (RBC) [Entitic vol] 82.7 fL Normal 80.0-94.0 A [facility] ([place]) Comment on above: Performed By: #### A DIFF, ANEU, TROPHS, CBC, BMP #### [place] [address] #### GFR #### [place] [address] Platelet 266 10 3/mcL Normal 130-400 [facility] ([place]) Comment on above: Performed By: #### A DIFF, ANEU, TROPHS, CBC, BMP #### [place] [address] #### GFR #### [place] [address] Platelet mean volume (Bld) [Entitic vol] 8.3 fL Normal 7.4-10.4 [facility] ([place]) Comment on above: Performed By: #### A DIFF, ANEU, TROPHS, CBC, BMP #### [place] [address] #### GFR #### [place] [address] RBC 5.60 10 6/mcL Normal 4.04-6.13 [facility] ([place]) Comment on above: Performed By: #### A DIFF, ANEU, TROPHS, CBC, BMP #### [place] [address] #### GFR #### [place] [address] WBC 8.30 10 3/mcL Normal 4.60-10.80 [facility] ([place]) Comment on above: Performed By: #### A DIFF, ANEU, TROPHS, CBC, BMP #### [place] [address] #### GFR #### [place] [address] [address] HEAD OR BRAIN W/O CONTRAS Alfredo 10-22-2020 CT HEAD OR BRAIN W/O CONTRAST ORIGINAL EXAMINATION: CT OF THE HEAD WITHOUT CONTRAST 10/22/2020 4:58 am TECHNIQUE: CT of the head was performed without the administration of intravenous contrast. Dose modulation, iterative reconstruction, and/or weight based adjustment of the mA/kV was utilized to reduce the radiation dose to as low as reasonably achievable. COMPARISON: None. HISTORY: ORDERING SYSTEM PROVIDED HISTORY: left arm numbness, left facial numbness Reason for Exam: left arm numbness, left facial numbness FINDINGS: BRAIN/VENTRICLES: There is no acute intracranial hemorrhage, mass effect or midline shift. No abnormal extra-axial fluid collection. The chandler-white differentiation is maintained without evidence of an acute infarct. There is no evidence of hydrocephalus. ORBITS: The visualized portion of the orbits demonstrate no acute abnormality. SINUSES: The visualized paranasal sinuses and mastoid air cells demonstrate no acute abnormality. SOFT TISSUES/SKULL: No acute abnormality of the visualized skull or soft tissues. IMPRESSION: No acute intracranial abnormality. Interpreted by: Matthew Jameson Preliminary Report By: Matthew Jameson Electronically signed By Matthew Jameson Dictated Date: 10/22/2020 5:17:15 AM Prelim Date: 10/22/2020 5:18:30 AM Sign Date: 10/22/2020 5:18:30 AM Ordering Provider: SUBHASH ROBLEDO [facility] ([place]) [facility] 10-22-2020 Troponin I High Sensitivity 5.3 ng/L Normal 0.0-76.2 [facility] ([place]) Comment on above: Performed By: #### T ROP #### [place] [address] Troponin I High Sensitivity 5.3 ng/L Normal 0.0-76.2 [facility] ([place]) Comment on above: Performed By: #### A DIFF, ANEU, CBC, BMP, LIPID #### [address] [address] #### GFR #### [address] [address] Troponin I High Sensitivity 5.6 ng/L Normal 0.0-76.2 [facility] ([place]) Comment on above: Performed By: #### A DIFF, ANEU, CBC, BMP, LIPID #### [address] [address] #### GFR #### [address] [address] XR CHEST 1 VIEWon 10-22-2020 XR CHEST 1 VIEW ORIGINAL EXAMINATION: ONE XRAY VIEW OF THE CHEST 10/22/2020 4:56 am COMPARISON: None. HISTORY: ORDERING SYSTEM PROVIDED HISTORY: chest pain Reason for Exam: chest pain FINDINGS: The heart size and mediastinal contours are normal. There is no lung infiltrate or edema. No pleural fluid or pneumothorax is present. There are mild degenerative changes in the thoracic spine. IMPRESSION: No acute radiographic abnormality of the chest. Interpreted by: Matthew Jameson Preliminary Report By: Matthew Jameson Electronically signed By Matthew Jameson Dictated Date: 10/22/2020 5:08:07 AM Prelim Date: 10/22/2020 5:09:07 AM Sign Date: 10/22/2020 5:09:07 AM Ordering Provider: SUBHASH ROBLEDO [facility] ([place] XR SHOULDER MINIMUM 2 VIEWS LEFTon 10-22-2020 XR SHOULDER MINIMUM 2 VIEWS LEFT ORIGINAL EXAMINATION: 4 XRAY VIEWS OF THE LEFT SHOULDER 10/22/2020 5:32 am COMPARISON: None. HISTORY: ORDERING SYSTEM PROVIDED HISTORY: pain Reason for Exam: pain FINDINGS: There is no fracture or dislocation of the left shoulder. The glenohumeral and acromioclavicular joints are normal. There are no periarticular calcifications. Visible portions of the left ribs are intact. IMPRESSION: No fracture or dislocation of the left shoulder. Interpreted by: Matthew Jameson Preliminary Report By: Matthew Jameson Electronically signed By Matthew Jameson Dictated Date: 10/22/2020 5:41:59 AM Prelim Date: 10/22/2020 5:44:21 AM Sign Date: 10/22/2020 5:44:21 AM Ordering Provider: SUBHASH ROBLEDO [facility] ([place] Office Visit: OSAon 01-21-20 Documentation of current medications (procedure) Done Invalid Interpretation Code [facility] Work Phone: Protein mass conc Done Invalid Interpretation Code [facility] Work Phone: Tobacco smoking status NHIS Never smoker Invalid Interpretation Code [facility] Work Phone: Tobacco use CPHS Never smoker Invalid Interpretation Code [facility] Work Phone: Clinical Lists Update: García allison 01-09-2017 Tobacco use CPHS Never smoker Invalid Interpretation Code [facility] Work Phone: Vital Signs Date Time Vital Sign Value Performing Clinician Facility 05-16-2024 11:19-0500 Diastolic Blood Pressure Non-Invasive 84 mm[Hg] SONIDO DOWNEY MD [facility] 05-16-2024 11:19-0500 Heart rate 74 /min SONIDO DOWNEY MD [facility] 05-16-2024 11:19-0500 Respiratory rate 18 /min SONIDO DOWNEY MD [facility] 05-16-2024 11:19-0500 Systolic Blood Pressure Non-Invasive 140 mm[Hg] SONIDO DOWNEY MD [facility] 05-16-2024 09:57-0500 Body temperature 98.06 [degF] SONIDO DOWNEY MD [facility] 05-16-2024 09:57-0500 Diastolic Blood Pressure Non-Invasive 98 mm[Hg] SONIDO DOWNEY MD [facility] 05-16-2024 09:57-0500 Heart rate 76 /min SONIDO DOWNEY MD [facility] 05-16-2024 09:57-0500 Respiratory rate 16 /min SONIDO DOWNEY MD [facility] 05-16-2024 09:57-0500 Systolic Blood Pressure Non-Invasive 145 mm[Hg] SONIDO DOWNEY MD [facility] 10-26-2023 10:17-0400 Body temperature 98.2 [degF] Ramon Handley APRN.CNP Work Phone: [facility] 10-26-2023 10:17-0400 Body weight 109.4 kg Ramon Handley OCCUPATIONAL THERAPY PROFESSOR.BLOCK BOLTER MULE OPERATOR Work Phone: [facility] 10-26-2023 10:17-0400 Diastolic blood pressure 97 mm[Hg] Ramon Handley OCCUPATIONAL THERAPY PROFESSOR.BLOCK BOLTER MULE OPERATOR Work Phone: [facility] 10-26-2023 10:17-0400 Heart rate 83 /min Ramon Handley OCCUPATIONAL THERAPY PROFESSOR.BLOCK BOLTER MULE OPERATOR Work Phone: [facility] 10-26-2023 10:17-0400 Respiratory rate 18 /min Ramon Handley OCCUPATIONAL THERAPY PROFESSOR.BLOCK BOLTER MULE OPERATOR Work Phone: [facility] 10-26-2023 10:17-0400 SaO2% (BldA) [Mass fraction] 100 % Ramon Handley OCCUPATIONAL THERAPY PROFESSOR.BLOCK BOLTER MULE OPERATOR Work Phone: [facility] 10-26-2023 10:17-0400 Systolic blood pressure 162 mm[Hg] Ramon Hnadley OCCUPATIONAL THERAPY PROFESSOR.BLOCK BOLTER MULE OPERATOR Work Phone: [facility] 06-10-2023 06:26-0400 Body height 177.[address] Avery Berry Work Phone: [facility] 06-10-2023 06:26-0400 Body mass index (BMI) [Ratio] 33.3 kg/m2 Dr. Avery Berry Work Phone: [facility] 06-10-2023 06:26-0400 Body temperature 98.2 [degF] Dr. Avery Berry Work Phone: [facility] 06-10-2023 06:26-0400 Body weight 105.[address] Avery Berry Work Phone: [facility] 06-10-2023 06:26-0400 Diastolic blood pressure 101 mm[Hg] Dr. Avery Berry Work Phone: [facility] 06-10-2023 06:26-0400 Heart rate 94 /min Dr. Avery Berry Work Phone: [facility] 06-10-2023 06:26-0400 Respiratory rate 16 /min Dr. Avery Berry Work Phone: [facility] 06-10-2023 06:26-0400 SaO2% (BldA) [Mass fraction] 96 % Dr. Avery Berry Work Phone: [facility] 06-10-2023 06:26-0400 Systolic blood pressure 160 mm[Hg] Dr. Avery Berry Work Phone: [facility] 05-29-2022 08:23-0500 Body height 177.[address] Hellen Zamora Work Phone: [facility] 05-29-2022 08:23-0500 Body mass index (BMI) [Ratio] 33.3 kg/m2 Dr. Hellen Zamora Work Phone: [facility] 05-29-2022 08:23-0500 Body temperature 97.2 [degF] Dr. Hellen Zamora Work Phone: [facility] 05-29-2022 08:23-0500 Body weight 105.[address] Hellen Zamora Work Phone: [facility] 05-29-2022 08:23-0500 Diastolic blood pressure 111 mm[Hg] Dr. Hellen Zamora Work Phone: [facility] 05-29-2022 08:23-0500 Heart rate 83 /min Dr. Hellen Zamora Work Phone: [facility] 05-29-2022 08:23-0500 Respiratory rate 18 /min Dr. Hellen Zamora Work Phone: [facility] 05-29-2022 08:23-0500 SaO2% (BldA) [Mass fraction] 98 % Dr. Hellen Zamora Work Phone: [facility] 05-29-2022 08:23-0500 Systolic blood pressure 158 mm[Hg] Dr. Hellen Zamora Work Phone: [facility] 01-20-2017 07:15-0400 BMI (Body Mass Index) 33.28 kg/m2 Adelaida Mani [facility] Work Phone: 01-20-2017 07:15-0400 Body Temperature 97.6 [degF] Adelaida Tamr [facility] Work Phone: 01-20-2017 07:15-0400 BP Diastolic 80 mm[Hg] AdelaidaRadio Rebel [facility] Work Phone: 01-20-2017 07:15-0400 BP Systolic 150 mm[Hg] Adelaida Tamr [facility] Work Phone: 01-20-2017 07:15-0400 Height 177.8 cm AdelaidaRadio Rebel [facility] Work Phone: 01-20-2017 07:15-0400 Pulse (Heart Rate) 80 /min Adelaida Mani [facility] Work Phone: 01-20-2017 07:15-0400 Respiratory Rate 18 /min Adelaida Tamr [facility] Work Phone: 01-20-2017 07:15-0400 Weight 105.24 kg AdelaidaRadio Rebel [facility] Phone: Encounters Encounter Date Encounter Type Care Provider Facility Start: 05-16-2024 End: 05-16-2024 Emergency department patient visit SONIDO DOWNEY MD [facility] Start: 10-26-2023 End: 10-26-2023 ambulatory HELLEN ZAMORA Facility:[facility] Start: 10-26-2023 End: 10-26-2023 Patient encounter procedure Ramon Handley APRN.CNP Work Phone: [facility] Comment on above: Acute otitis externa of right ear, unspecified type (Primary Dx); Cellulitis of right ear Start: 07-29-2023 Encounter for genera l adult medical examination without abnormal findings Avery Jamal [facility] Start: 07-24-2023 End: 07-24-[address] Avery Berry Work Phone: [facility]-Laboratory, Humaira Avila [facility] Start: 07-24-2023 End: 07-24-[address] Avery Berry Work Phone: [facility] Work Phone: Start: 06-10-2023 End: 06-10-2023 ambulatory [facility] Facility:[facility] Start: 06-10-2023 End: 06-10-[address] Avery Berry Work Phone: [facility] Work Phone: Start: 05-30-2022 End: 05-30-[address] Hellen Zamora Work Phone: [facility] Work Phone: Start: 05-30-2022 End: 05-30-[address] Hellen Zamora Work Phone: [facility] Start: 05-29-2022 End: 05-29-[address] Hellen Zamora Work Phone: [facility]-Pulmonary Medicine [facility] Start: 05-06-2022 End: 05-06-2022 ambulatory [facility] Work Phone: Start: 05-06-2022 End: 05-06-2022 Patient encounter procedure [facility] Start: 04-18-2022 End: 04-18-2022 ambulatory [facility] Work Phone: Start: 04-18-2022 End: 04-18-2022 Patient encounter procedure [facility], Humaira Avila [facility] Start: 04-09-2022 End: 04-09-2022 ambulatory [facility] Work Phone: Start: 04-09-2022 End: 04-09-2022 Patient encounter procedure [facility], Specimen Start: 03-01-2020 [facility] Start: 03-21-2016 End: 03-22-[address] Facility:[facility] Procedures Date Procedure Procedure Detail Performing Clinician Start: 05-30-2022 X-ray of cervical spine Dr. 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 Start: 11-29-2022 Covid-19 Vaccine ( season) Covid-19 Vaccine ( season) [facility] Start: 2022 Shingrix Vaccine (1 of 2) Shingrix Vaccine (1 of 2) [facility] Start: 03-22-2021 Lipid panel Lipid Screening [facility] Start: 03-22-2019 Diabetes Screening Diabetes Screening [facility] Start: 2017 Screening for malignant neoplasm of colon [facility] Start: 04-21-2017 End: 04-21-2017 Appointment Appointment [facility] Work Phone: Start: 01-21-2017 End: 01-21-2017 *MISC - Miscellaneous Lab Test #1 *MISC - Miscellaneous Lab Test #1 [facility] Work Phone: Start: 01-20-2017 End: 01-20-2017 *MISC - Miscellaneous Lab Test #1 *MISC - Miscellaneous Lab Test #1 [facility] Work Phone: Start: 01-20-2017 End: 01-20-2017 DMB DMB [facility] Work Phone: Start: 01-20-2017 End: 01-20-2017 Follow Up Appt 3 months Follow Up Appt 3 months [facility] Work Phone: Start: 01-20-2017 End: 01-20-2017 Appointment Appointment [facility] Work Phone: Start: 01-08-2017 End: 01-08-2017 Appointment Appointment [facility] Work Phone: Start: 09-18-1991 Hepatitis B Vaccine (1 of 3 - 19+ 3-dose series) Hepatitis B Vaccine (1 of 3 - 19+ 3-dose series) [facility] Start: 1990 Anxiety Screening Anxiety Screening [facility] Start: 1990 Depression Screening Depression Screening [facility] Start: 1990 Hepatitis C screening Hepatitis C Screening [facility] Start: 1990 HIV screening HIV Screening [facility] Immunizations Immunization Date Immunization Notes Care Provider Irma adrian 05-16-2024 tetanus toxoid, redu sade diphtheria toxoid, and acellular pertussis vaccine, adsorbed SONIDO DOWNEY MD [facility] 02-05-2017 tetanus toxoid, redu sade diphtheria toxoid, and acellular pertussis vaccine, adsorbed SONIDO DOWNEY MD [facility] Payers Date Payer Category Payer Self-pay [id number] 2022 Unknown [id number] 2022 Unknown [id number] 1970 Unknown [id number] Private Health Insurance CHUCK [id number] Unknown [id number] Unknown [id number] Unknown [id number] Unknown [id number] Social History Date Type Detail Facility Start: 04-05-2020 End: 06-10-2023 Tobacco smoking status SCIS Unknown if ever smoked [facility] Start: 1970 Sex Assigned At Male [facility] Start: 10-22-2020 End: 10-26-2023 Tobacco smoking status NHIS Never smoked tobacco [facility] Start: 10-26-2023 Tobacco use and exposure Smoke less tobacco non-user [facility] Start: 03-09-2020 End: 10-26-2023 History of Social function [facility] Start: 03-09-2020 End: 10-26-2023 Tobacco use panel [facility] National Score (1-10 0), lower number is lower risk Not on file [facility] Start: 1970 Sex Assigned At Not on file [facility] Sexual Orientation [facility] Start: 05-21-2018 Sex Male (finding) [facility] Functional Status Date Assessment Result Facility 05-16-2024 Functional Status Independent [facility] 05-16-2024 Functional Status ID band on [facility] Mental Status Date Assessment Result Facility 05-16-2024 Mental Status Orientation Oriented x 4 [facility] 05-16-[address] [facility] Hospital Discharge instructions 05-16-2024 Note Date & Type Note Facility 05-16-2024 Hospital Discharg e instructions Patient Education 05/16/2024 10:32:08 Dog Bite Dog Bite A dog bite can cause a wound deep enough to break the skin. In such cases, the wound is cleaned and sometimes closed. If the wound is closed, it is usually not completely closed. This is so that fluid can drain if the wound becomes infected. Often, wounds will be left open to heal. In addition to wound care, a tetanus shot may be given, if needed. Home care Wash your hands well with soap and warm water before and after caring for the wound. This helps lower the risk of infection. Care for the wound as directed. If a dressing was applied to the wound, be sure to change it as directed. If the wound bleeds, place a clean, soft cloth on the wound. Then firmly apply pressure until the bleeding stops. This may take up to 5 minutes. Do not release the pressure and look at the wound during this time. Most wounds heal within 10 days. But an infection can occur even with proper treatment. So be sure to check the wound daily for signs of infection (see below). Antibiotics may be prescribed. These help prevent or treat infection. If you re given antibiotics, take them as directed. Also be sure to complete the medicines. Rabies prevention Rabies is a virus that can be carried in certain animals. These can include domestic animals such as dogs and cats. Pets fully vaccinated against rabies (2 shots) are at very low risk of infection. But because human rabies is almost always fatal, any biting pet should be confined for 10 days as an extra precaution. In general, if there is a risk for rabies, the following steps may need to be taken: If someone s pet dog has bitten you, it should be kept in a secure area for the next 10 days to watch for signs of illness. (If the pet raw products director won t allow this, contact your local animal control center.) If the dog becomes ill or dies during that time, contact your local animal control center at once so the animal may be tested for rabies. If the dog stays healthy for the next 10 days, there is no danger of rabies in the animal or you. oIf a stray dog bit you, contact your local animal control center. They can give information on capture, quarantine, and animal rabies testing. oIf you can t find the animal that bit you in the next 2 days, and if rabies exists in your area, you may need to receive the rabies vaccine series. Call your healthcare provider right away. Or, return to the emergency department promptly. oAll animal bites should be reported to the local animal control center. If you were not given a form to fill out, you can report this yourself. Follow-up care Follow up with your healthcare provider, or as directed. When to seek medical advice Call your healthcare provider right away if any of these occur: Signs of infection: oSpreading redness or warmth from the wound oIncreased pain or swelling oFever of 100.4 F (38 C) or higher, or as directed by your healthcare provider oColored fluid or pus draining from the wound Signs of rabies infection: oHeadache oConfusion oStrange behavior oIncreased salivating and drooling oSeizure Decreased ability to move any body part near the wound Bleeding that can't be stopped after 5 minutes of firm pressure [id number] [employer]. [address] [place] [address]. All rights reserved. This information is not intended as a substitute for professional medical care. Always follow your healthcare professional's instructions. Follow Up Care 05/16/2024 09:35:35 With:HELLEN ZAMORA Address: [address] [place] [id number] Business (1) When:2-4 days Comments:Schedule appointment as soon as possibleReturn to ED if symptoms worsenWash the wounds daily and apply antibiotic ointment and dressingFollow-up for any signs of infectionElevate Tylenol and Advil for pain [facility] Clinical Note 05-16-2024 Note Date & Type Note Facility 05-16-2024 Note Discharge Instructions Thank you for allowing [facility] to assist you with your healthcare needs. The following is important discharge information regarding your hospital visit. Diagnosis from Today's Visit Dog bite of hand What to Do Next Instructions from Your Care Team No qualifying data available. Post Acute Orders No qualifying data available. You Need to Schedule the Following Appointments Follow Up with HELLEN ZAMORA When:Within 2-4 days Where:[address] [place] [id number] Business (1) Additional Information: Schedule appointment as soon as possible Return to ED if symptoms worsen Wash the wounds daily and apply antibiotic ointment and dressing Follow-up for any signs of infection Elevate Tylenol and Advil for pain Allergies NKA Medications Please ask your primary doctor or pharmacist before taking any other medication not listed, including over the counter drugs, herbal medications, vitamins and or supplements as they may interact with your home medications. What How Much When Instructions Last Dose New amoxicillin-clavulanate (amoxicillin-clavulanate 500 mg-125 mg oral tablet) 1 tab(s) by mouth Every 8 hours Duration: 5 Days Printed Prescription Unchanged aspirin 81 Milligram by mouth Once a day with a meal Unchanged herbal/ nutritional product (turmeric 500 mg oral capsule) 1 cap by mouth Every day as needed for Pain Please take this list to your next doctor s visit. Bring all medications you take, including over the counter medications, herbals and other supplements with you to your doctor s visit. Patients and families are reminded to discard old lists and to update any records with all medication providers or retail pharmacies. Education Materials Dog Bite A dog bite can cause a wound deep enough to break the skin. In such cases, the wound is cleaned and sometimes closed. If the wound is closed, it is usually not completely closed. This is so that fluid can drain if the wound becomes infected. Often, wounds will be left open to heal. In addition to wound care, a tetanus shot may be given, if needed. Home care Wash your hands well with soap and warm water before and after caring for the wound. This helps lower the risk of infection. Care for the wound as directed. If a dressing was applied to the wound, be sure to change it as directed. If the wound bleeds, place a clean, soft cloth on the wound. Then firmly apply pressure until the bleeding stops. This may take up to 5 minutes. Do not release the pressure and look at the wound during this time. Most wounds heal within 10 days. But an infection can occur even with proper treatment. So be sure to check the wound daily for signs of infection (see below). Antibiotics may be prescribed. These help prevent or treat infection. If you re given antibiotics, take them as directed. Also be sure to complete the medicines. Rabies prevention Rabies is a virus that can be carried in certain animals. These can include domestic animals such as dogs and cats. Pets fully vaccinated against rabies (2 shots) are at very low risk of infection. But because human rabies is almost always fatal, any biting pet should be confined for 10 days as an extra precaution. In general, if there is a risk for rabies, the following steps may need to be taken: If someone s pet dog has bitten you, it should be kept in a secure area for the next 10 days to watch for signs of illness. (If the pet raw products director won t allow this, contact your local animal control center.) If the dog becomes ill or dies during that time, contact your local animal control center at once so the animal may be tested for rabies. If the dog stays healthy for the next 10 days, there is no danger of rabies in the animal or you. oIf a stray dog bit you, contact your local animal control center. They can give information on capture, quarantine, and animal rabies testing. oIf you can t find the animal that bit you in the next 2 days, and if rabies exists in your area, you may need to receive the rabies vaccine series. Call your healthcare provider right away. Or, return to the emergency department promptly. oAll animal bites should be reported to the local animal control center. If you were not given a form to fill out, you can report this yourself. Follow-up care Follow up with your healthcare provider, or as directed. When to seek medical advice Call your healthcare provider right away if any of these occur: Signs of infection: oSpreading redness or warmth from the wound oIncreased pain or swelling oFever of 100.4 F (38 C) or higher, or as directed by your healthcare provider oColored fluid or pus draining from the wound Signs of rabies infection: oHeadache oConfusion oStrange behavior oIncreased salivating and drooling oSeizure Decreased ability to move any body part near the wound Bleeding that can't be stopped after 5 minutes of firm pressure [phone] [employer]. [address] [place] [address], [place] [address]. All rights reserved. This information is not intended as a substitute for professional medical care. Always follow your healthcare professional's instructions. Additional Information VACCINATE! IT SAVES LIVES! Members of the community who have not yet received the COVID-19 vaccine and would like to receive it can visit one of [facility] vaccine clinics. There are many vaccine clinic locations within the [facility]. For locations and available times, please visit www.gettheshot.coronavirus.[place].gov/. It is important to note that some COVID mobile vaccine clinics are held outdoors and may be canceled in rainy or stormy conditions. To learn more about pediatric vaccinations (ages 5-11), we invite you to visit the [facility] webpage. [email or web address]/[email or web address]-Frequently-[email or web address] -Questions.html To learn more about the COVID-19 vaccine, we invite you to visit the CDC website for a list of frequently asked questions. https://www.cdc.gov/coronavirus/2019-n cov/vaccines/faq.html [facility] Patient Portal Access Instructions: Stay connected with your healthcare team and access your personal medical information anytime with the [facility] Patient Portal. If you would like a full copy of your medical records please contact the [facility] Medical Records Department Friday through Friday between 8a.m. and 4:30p.m. Please follow the directions below to access the portal: 1.Access the email account you provided upon registration to the hospital.2.Look for an invitation email from [facility].3.Open the email and access the invitation link: Accept Invitation to [facility].Fill in the required sanchez to create your account. Sign into [email or web address] with your username and password that you created in the above steps to stay up to date. You can then view a summary of results, a summary of your visits, and the ability to download your summaries to your computer or send the information securely to a physician. Remember that your healthcare information is confidential, so carefully consider who you will allow to register on the [facility] Patient Portal for access to your information. You can also access the [facility] Patient Portal on the [employer] pavel. Simply click on Health Records under Health Data and then click on the [facility] logo. HOW TO SAFELY DISPOSE OF PRESCRIPTION MEDICATIONS Please use one of the following methods to safely dispose of your unused medications. 1.Use a drug disposal kit: the drug disposal pouch allows you to safely discard your old and unused drugs. Ask your nurse to give you one when you are discharged.2.Visit a local take-back location: Many local pharmacies and police departments have programs that collect old and unwanted prescription drugs. Call your local pharmacy or go to http://Oncodesign.[employer]/7H7Sr1e to find one close to you.3.Make use of household items: Use cat litter or old coffee grounds to dispose medications if other options are not available. Mix your drugs with these household products, seal them in an airtight container and throw it into the garbage. Call [facility]: [phone] to be sure your drugs can be disposed of in this way. Some medicines may require a different approach.4.Never flush your medications down the toilet. IF YOU HAVE BEEN PRESCRIBED AN OPIOIDS FOR PAIN If you have been prescribed an opioid (such as hydrocodone, oxycodone or morphine), it is critical to understand the possible side effects and risks of opioid pain medications. Even when taken as directed, opioids can have several side effects including: Tolerance, meaning you might need to take more of a medication for the same pain relief. Nausea, vomiting and/or constipation. Sleepiness, dizziness, dry mouth, confusion, depression or itching. Physical dependence, meaning you have withdrawal symptoms when a medication is stopped ? this can develop within a few days. KNOW YOUR RESPONSIBILITIES It is important to know exactly how much and how often to take the opioid pain medications you are prescribed. Never take opioids in higher amounts or more often than prescribed. Do not combine opioids with alcohol or other drugs that cause drowsiness, such as benzodiazepines, also known as benzos, including diazepam and alprazolam, muscle relaxants or sleep aids. Never sell or share prescription opioids. This is illegal. Store opioids in a secure place and out of reach of others (including children, family, friends and visitors). The last page(s) of this document has been signed and retained as a CHART COPY Signatures Patient Education Materials Dog Bite Medication Leaflets My discharge plan and instructions have been reviewed and explained to me and ITOÑA BRIAN D understand my current condition and have read and understand these discharge instructions. I have received a written copy of the plan/instructions. If I have questions, I am aware that I should contact my doctor. Patient/Chestnut Tanner Signature: _ Date/Time: Relationship to Patient: Witness Name/Signature: Date/Time: [facility] History of Present illness Narrative 10-26-2023 Ramon Handley APRN.[facility] - 10/26/2023 12:58 PM EDT Note Date & Type Note Facility 10-26-2023 History of Presen t illness Narrative Subjective HPI HPI Karlos Ding is a 53 year old male who presents today for CC of right ear pain/drainage. This started 1 week ago. Has tried otc medication for relief. Symptoms are worsened by nothing. Risk factors uses qtips frequently. Denies recent swimming .Patient presents with: Ear Pain: R ear pain x1 week No past medical history on file. No past surgical history on file. ALLERGIES Patient has no known allergies. MEDICATIONS losartan (COZAAR) 25 mg tablet Take 1 tablet by mouth every afternoon. hydroCHLOROthiazide 25 mg tablet Take 1 tablet by mouth every afternoon. diazePAM (VALIUM) 5 mg tablet TAKE 1-2 TAB BY MOUTH A SINGLE DOSE ONE-HOUR PRIOR TO MRI FOR CLAUSTROPHOBIA lisinopril-hydrochlorothiazide (PRINZIDE,ZESTORETIC) 20-12.5 mg per tablet TAKE 1 TABLET EVERY DAY cephALEXin (KEFLEX) 500 mg capsule Take 1 capsule by mouth three times a day for 7 days. ofloxacin (FLOXIN) 0.3 % otic solution Use 10 Drops in both ears once daily for 7 days. albuterol HFA (PROAIR HFA) 90 mcg/actuation inhaler Inhale 2 Puffs as instructed every 6 hours as needed for Wheezing/Shortness of Breath. (Patient not taking: Reported on 10/26/2023) doxycycline monohydrate (MONODOX) 100 mg capsule Take 1 capsule by mouth twice daily. (Patient not taking: Reported on 10/26/2023) No family history on file. Social History Tobacco Use Smoking status: Never Smokeless tobacco: Never Review of Systems Constitutional: Negative for fever. HENT: Negative for congestion, ear pain, nosebleeds and sore throat. Respiratory: Negative for cough, shortness of breath and wheezing. Musculoskeletal: Negative for neck pain. Objective Blood pressure 162/97, pulse 83, temperature 36.8 C (98.2 F), resp. rate 18, weight 109.4 kg (241 lb 2.9 oz), SpO2 100%. Physical Exam Constitutional: General: He is not in acute distress. Appearance: He is not toxic-appearing or diaphoretic. HENT: Head: Normocephalic and atraumatic. Right Ear: Hearing and external ear normal. Drainage, swelling and tenderness (surrounding erythema noted.) present. Left Ear: Hearing, tympanic membrane, ear canal and external ear normal. Mouth/Throat: Lips: [place]. Mouth: Mucous membranes are moist. Pulmonary: Effort: Pulmonary effort is normal. No accessory muscle usage or respiratory distress. Lymphadenopathy: Cervical: No cervical adenopathy. Right cervical: No superficial cervical adenopathy. Left cervical: No superficial cervical adenopathy. Neurological: Mental Status: He is alert and oriented to person, place, and time. ASSESSMENT/PLAN: 1. Acute otitis externa of right ear, unspecified type - ICD9: 380.10, ICD10: H60.501 (primary diagnosis) -education material provided -use medication as prescribed -f/u if no better in 3-5 days -discussed proper ear hygiene -discussed prevention - OFLOXACIN 0.3 % EAR DROPS 2. Cellulitis of right ear - ICD9: 380.10, ICD10: H60.11 -use medication as prescribed -follow up if symptoms persist, worsen, change - CEPHALEXIN 500 MG CAPSULE Ramon Handley APRN.[facility] documented in this encounter [facility] Evaluation + Plan note Note Date & Type Note Facility Evaluation + Plan note No data available for this section [facility] Evaluation note Note Date & Type Note Facility Evaluation note No assessment information availa ble [facility] Work Phone: Evaluation note Note Date & Type Note Facility Evaluation note Diagnosis Onset Date Obesity chronic MICHAEL (obstructive sleep apnea) chronic [facility] Work Phone: Evaluation note Note Date & Type Note Facility Evaluation note Diagnosis Acute otitis externa of right ear, unspecified type- Primary Cellulitis of right ear documented in this encounter [facility] Summary Purpose Family History No Family History Records Found Relationship Condition Age at Onset Recorded Date/T ivania mother Hypertension Unknown father Hypertension Unknown Pancreatitis Unknown Advance Directives No Advanced Directives Records FoundNo Advanced Directives Records FoundNo Advanced Directives Records FoundNo Advanced Directives Records FoundNo Advanced Directives Records FoundNo Advanced Directives Records Found Chief Complaint and Reason for Visit Chief Complaint MICHAEL Chief Complaint MICHAEL 1 Y FU NECK PAIN Reason for Visit Obesity MICHAEL (obstructive sleep apnea) Chief Complaint 1 Y FU Reason for Visit Obesity MICHAEL (obstructive sleep apnea) Additional Source Comments (unrecognized sect ion and content) No Status Records FoundNo Status Records FoundNo Status Records FoundNo Status Records FoundNo Status Records FoundNo Status Records Found INFORMATION SOURCE (unrecogn ized section and content) DATE CREATED AUTHOR 09/24/2017 [facility] DATE CREATED AUTHOR AUTHOR'S ORGANIZ ATION 03/01/2020 [facility] DATE CREATED AUTHOR AUTHOR'S ORGANIZ ATION 11/18/2020 [facility] ([place]) DATE CREATED AUTHOR AUTHOR'S ORGANIZ ATION 07/30/2023 [facility] DATE CREATED AUTHOR AUTHOR'S ORGANIZ ATION 10/26/2023 [facility] DATE CREATED AUTHOR AUTHOR'S ORGANIZ ATION 05/23/2024 [facility] Goals (unrecognized section and content) Goals may be documented in a n alternate sectionGoals may be documented in an alternate sectionGoals may be documented in an alternate sectionGoals may be documented in an alternate sectionGoals may be documented in an alternate section No data available for this section Care Teams (unrecognized sec tion and content) Team Status: Active Member Role Status Dates Dr. Hellen Zamora DO Family Provider Active Dr. Hellen Zamora DO Primary Care Provider Active Team Status: Inactive Member Role Status Dates Dr. Hellen Malys , DO Primary Care Provider, Attending P evy Active Team Status: Active Member Role Status Dates Dr. Hellen Zamora , DO Family Provider Active Dr. Avery Berry , DO Primary Care Provider Active Team Status: Inactive Member Role Status Dates Dr. Avery Berry , DO Primary Care Prov ider, Attending Provider, Referring Provider Active Team Status: Inactive Member Role Status Dates Dr. Hellen Zamora , DO Referring Provider Active Karon Norwood GARAGE DOOR OPENER INSTALLER, GARAGE DOOR OPENER INSTALLER-C Attending Provider Active Dr. Avery Berry , DO Primary Care Provider Active Team Status: Inactive Member Role Status Dates Dr. Avery Berry , DO Primary Care Provider, Referrin g Provider Active Dr. Jorge Matamoros , DO Attending Provider Active Team Status: Inactive Member Role Status Dates Dr. Avery Berry , DO Primary Care Provider, Attendin g Provider Active Bar Helper Relationship Specialty Start Date End Date Hellen Zamora DO [address] [facility] [address] PCP - General Family Medicine 11/09/18 Source Comments (unrecognize d section and content) In the event this informatio n is protected by the Federal Confidentiality of Alcohol and Drug Abuse Patient Records regulations: The Federal rules restrict any use of the information to criminally investigate or prosecute any alcohol or drug abuse patient.[facility] Reason for Visit (unrecogniz ed section and content) Reason Comments Ear Pain R ear pain x1 week FOR RECORDS PERTAINING TO PATIENTS WHO ARE OR HAVE BEEN ENROLLED IN A CHEMICAL DEPENDENCY/SUBSTANCEABUSE PROGRAM, SOME INFORMATION MAY BE OMITTED. This clinical summary was aggregated from multiple sources. Caution should be exercised in using it in the provision of clinical care. This summary normalizes information from multiple sources, and as a consequence, information in this document may materially change the coding, format and clinical context of patient data. In addition, data may be omitted in some cases. CLINICAL DECISIONS SHOULD BE BASED ON THE PRIMARY CLINICAL RECORDS. [facility]. provides no warranty or guarantee of the accuracy or completeness of information in this document.
== END | disposition home or self-care (01) ==
LOC: BFHLAB 13:03
PROVIDERS: PCP Family Medicine; Visit Provider Nurse Practitioner Family
DX: R10.11 Right upper quadrant pain (principal)
CPT/HCPCS: 36415; 80053; 85025

== ENCOUNTER → 2024-12-21 | Outpatient (CLI) | payer BC, SELFPAY ==
--- NOTE | 2024-12-21 10:54 | US_ITS ---
PROCEDURE: ABDOMEN LIMITED 12/21/2024 REASON FOR EXAM: RUQ PAIN TECHNIQUE: Procedure Code: USABDL Modality: US Procedure: ABDOMEN LIMITED COMPARISON: June 20, 2017. FINDINGS: Liver: Diffusely echogenic suggesting fatty infiltration. Borderline hepatomegaly. The liver measures 18.2 cm. Gallbladder: No stones sludge wall thickening or tenderness. Common bile duct: Normal measuring 3.5 mm . Pancreas: Visualized portions are unremarkable. The distal body and tail are obscured by bowel gas. Other: Visualized portions of the right kidney are unremarkable. No right upper quadrant ascites. US/Abdomen Limited IMPRESSION: Borderline hepatomegaly. Fatty infiltration of the liver. Reading Location: [place] [address]
--- OUTSIDE RECORDS SUMMARY | 2024-12-21 12:14 | XMS RPT_ITS | CCD ---
Author Organization [facility] [place] Inform ion [facility] Care Team Providers Care Individual Pension Consultant Name Role Phone Hattie Singletonica L Unavailable Unavailable Karon Norwood CNP S Unavailable [phone] Adelaida Antonio LPN Unavailable Unavaila ble NO REFERRING DR Unavailable Unavailable HOUSE MED, RAZACK Unavailable Unavailable HOUSE MED, RAZACK Unavailable Unavailable AZZAM, RAED Unavailable Unavailable PATEL, BUD I Unavailable Unavailable Mani Adelaida L Unavailable Unavailable Mani Adelaida L Unavailable Unavailable Dr. Hellen Zamora Referring Provider [place] SLAUGHTERER [employer]ITUAL, SLAUGHTERER RELIGIOUS RITUAL-C Karon Attending Provider [phone] Dr. Avery Berry Primary Care Provider Dr. Avery Berry Primary Care Provider Dr. Avery Berry Referring Provider [phone] Dr. Jorge Matamoros Attending Provider [phone] HELLEN ZAMORA Primary Care Unavailable Hellen Zamora DO Primary Care Provider [phone] DR HELLEN ZAMORA DO Primary Care Physician DR HELLEN ZAMORA DO Primary Care Unavailable SONIDO DOWNEY MD Attending Unavailable Emily Sandhu Attending Unavailable Emily Sandhu Referring Unavailable Avery Berry Primary Care Unavailable Emily Sandhu Attending Unavailable Avery Berry Primary Care Unavailable Medications Current Medications Medication Drug Class(es) Dates Sig (Normalized) Sig (Original) [id number] 200 actuat albuterol 0.09 mg/actuat metered dose [...] source) Penicillin-class Antibacterial Start: 05-16-19 End: 05-21-19 25 take 1 tablet by mouth every eight hours amoxicillin-clavulanat e 500 mg-125 mg oral tablet 1 tab(s), Oral, q8h, X 5 day(s), # 15 tab(s), 0 Refill(s), 05/21/24 10:33:00 AM EST, 103.2 Start Date: 05/16/24 Stop Date: 05/21/24 Status: Ordered Quantity: 15.0 Unit: tab(s) Repeat number: 1 aspirin 81 mg oral tablet (1 source) Platelet Aggregation Inhibitor, Nonsteroidal Anti-inflammatory Drug Start: 10-24-19 21 aspirin Dose : 81 mg =, Oral, [...] tablet (3 sources) Thiazide Diuretic Start: 08-27-19 take 1 tablet by mouth once hydroCHLOROthiazide [...] as needed for muscle spasm CYCLOBENZAPRINE HCL [id number] Adelaida Antonio CERTIFIED COURT/MEDICAL INTERPRETER fluticasone propionate 0.05 mg/actuat metered dose nasal [...] Classification Problem Date Documented Da te Episodic/Chronic Abdominal pain (1 source) Right upper quadrant pain; Translations: [Right upper quadrant pain] Onset: 12-15-2024 Episodic Anxiety disorders (1 source) Anxiety disorder, unspecified; [...] Test Name Value Interpretation Reference Range Facility CBC W/Diff, Automatedon 11-29 Absolute Lymph 2.57 X10 3/uL Normal 0.83-4.51 [facility] Comment on above: Performed By: #### L 100.0100, L500.4050 #### [facility] [address] [place], [address] Absolute Neut 4.5 X10 3/uL Normal 2.0-7.7 [facility] Comment on above: Performed By: #### L 100.0100, L500.4050 #### [facility] [address] [place], [address] Basophils/100 WBC (Bld) 1.3 % High 0-1 [facility] Comment on above: Performed By: #### L 100.0100, L500.4050 #### [facility] [address] [place], [address] Eosinophils/100 WBC (Bld) 2.2 % Normal 0-5 [facility] Comment on above: Performed By: #### L 100.0100, L500.4050 #### [facility] [address] [place], [address] Erythrocyte distribution width (RBC) [Ratio] 13.1 % Normal 11.6-14.6 [facility] Comment on above: Performed By: #### L 100.0100, L500.4050 #### [facility] [address] [place], [address] Hematocrit (Bld) [Volume fraction] 47.9 % Normal 40-54 [facility] Comment on above: Performed By: #### L 100.0100, L500.4050 #### [facility] [address] [place], [address] Hemoglobin (Bld) [Mass/Vol] 15.8 g/dL Normal 13.0-16.5 [facility] Comment on above: Performed By: #### L 100.0100, L500.4050 #### [facility] [address] [place], [address] IG% 0.400 Normal 0.0-0.9 [facility] Comment on above: Result Comment: IG% - Immature Granulocytes (promyelocytes, myelocytes and metamyelocytes) > 1% indicates that a LEFT SHIFT is Present. Performed By: #### L 100.0100, L500.4050 #### [facility] [address] [place], [address] Lymphocytes/100 WBC (Bld) 31.0 % Normal 19-41 [facility] Comment on above: Performed By: #### L 100.0100, L500.4050 #### [facility] [address] [place], [address] MCH (RBC) [Entitic mass] 26.7 pg Low 27.0-32.0 [facility] Comment on above: Performed By: #### L 100.0100, L500.4050 #### [facility] [address] [place], [address] MCHC (RBC) [Mass/Vol] 33.0 g/dL Normal 32-36 [facility] Comment on above: Performed By: #### L 100.0100, L500.4050 #### [facility] [address] [place], [address] MCV (RBC) [Entitic vol] 80.9 fL Normal 80-94 [facility] Comment on above: Performed By: #### L 100.0100, [id number] #### [facility] [address] [place], [address] Monocytes/100 WBC (Bld) 11.2 % High 0-10 [facility] Comment on above: Performed By: #### L 100.0100, L500.4050 #### [facility] [address] [place], [address] Neutrophils/100 WBC (Bld) 53.9 % Normal 47-70 [facility] Comment on above: Performed By: #### L 100.0100, L500.4050 #### [facility] [address] [place], [address] Nucleated RBC (Bld) [#/Vol] 0 10*3/uL Normal 0-5 [facility] Comment on above: Performed By: #### L 100.0100, L500.4050 #### [facility] [address] [place], [address] Platelet mean volume (Bld) [Entitic vol] 10.1 fL Normal 6.2-12.0 [facility] Comment on above: Performed By: #### L 100.0100, L500.4050 #### [facility] [address] [place], [address] Platelets (Bld) [#/Vol] 316 10*3/uL Normal 150-450 [facility] Comment on above: Performed By: #### L 100.0100, L500.4050 #### [facility] [address] [place], [address] RBC (Bld) [#/Vol] 5.92 10*6/uL Normal 4.6-6.2 [facility] Comment on above: Performed By: #### L 100.0100, L500.4050 #### [facility] [address] [place], [address] RDW SD 38.2 fl Normal 35.1-43.9 [facility] Comment on above: Performed By: #### L 100.0100, L500.4050 #### [facility] [address] [place], [address] WBC (Bld) [#/Vol] 8.3 10*3/uL Normal 4.4-11.0 [facility] Comment on above: Performed By: #### L 100.0100, L500.4050 #### [facility] [address] [place], [address] Comprehensive Metabolic Prof [facility] 12-13-2024 Albumin [Mass/Vol] 4.6 g/dL Normal 3.5-5.0 [facility] Comment on above: Performed By: #### L 100.0100, L500.4050 #### [facility] [address] [place], [address] Albumin/Globulin [Mass ratio] 1.5 {ratio} Normal 0.9-2.4 [facility] Comment on above: Performed By: #### L 100.0100, L500.4050 #### [facility] [address] [place], [address] ALK PHOS 72 U/L Normal 40-129 [facility] Comment on above: Performed By: #### L 100.0100, [id number] #### [facility] [address] [place], [address] ALT [Catalytic activity/Vol] 26 U/L Normal <=46 [facility] Comment on above: Performed By: #### L 100.0100, L500.4050 #### [facility] [address] [place], [address] AST [Catalytic activity/Vol] 24 U/L Normal <=37 [facility] Comment on above: Performed By: #### L 100.0100, L500.4050 #### [facility] [address] [place], [address] Bilirubin [Mass/Vol] 0.43 mg/dL Normal 0.00-1.30 [facility] Comment on above: Performed By: #### L 100.0100, L500.4050 #### [facility] [address] [place], [address] BUN/CRE 16.4 RATIO Normal 10-20 [facility] Comment on above: Performed By: #### L 100.0100, L500.4050 #### [facility] [address] [place], [address] Calcium [Mass/Vol] 9.5 mg/dL Normal 7.6-11.0 [facility] Comment on above: Performed By: #### L 100.0100, L500.4050 #### [facility] [address] [place], [address] Chloride [Moles/Vol] 102 mmol/L Normal 98-108 [facility] Comment on above: Performed By: #### L 100.0100, L500.4050 #### [facility] [address] [place], [address] CO2 [Moles/Vol] 23.4 mmol/L Normal 21.0-32.0 [facility] Comment on above: Performed By: #### L 100.0100, [id number] #### [facility] [address] [place], [address] Creatinine [Mass/Vol] 0.86 mg/dL Normal 0.70-1.20 [facility] Comment on above: Performed By: #### L 100.0100, L500.4050 #### [facility] [address] [place], [address] GAP 13 Normal 5-15 [facility] Comment on above: Performed By: #### L 100.0100, L500.4050 #### [facility] [address] [place], [address] GFR/1.73 sq M.predicted among non-blacks MDRD (S/P/Bld) [Vol rate/Area] 104 mL/min/{1.73_m2} Normal >60 [facility] Comment on above: Result Comment: mL/m in/1.73m2 CKD-EPI Creatinine Equation (2020) Performed By: #### L 100.0100, L500.4050 #### [facility] [address] [place], [address] Globulin (S) [Mass/Vol] 3.1 g/dL Normal 2.2-4.2 [facility] Comment on above: Performed By: #### L 100.0100, L500.4050 #### [facility] [address] [place], [address] Glucose [Mass/Vol] 88 mg/dL Normal 70-99 [facility] Comment on above: Performed By: #### L 100.0100, L500.4050 #### [facility] [address] [place], [address] Potassium [Moles/Vol] 3.8 mmol/L Normal 3.3-5.1 [facility] Comment on above: Performed By: #### L 100.0100, L500.4050 #### [facility] [address] [place], [address] Sodium [Moles/Vol] 138 mmol/L Normal 133-145 [facility] Comment on above: Performed By: #### L 100.0100, L500.4050 #### [facility] [address] [place], [address] T PROT 7.7 g/dL Normal 5.9-8.4 [facility] Comment on above: Performed By: #### L 100.0100, L500.4050 #### [facility] [address] [place], [address] Urea nitrogen [Mass/Vol] 14 mg/dL Normal 4-19 [facility] Comment on above: Performed By: #### L 100.0100, L500.4050 #### [facility] [address] [place], [address] Absolute lymphocyte countOrd ered By: Avery Berry on 07-24-2023 Lymphocytes Auto (Unsp spec) [#/Vol] 3.11 10*3/uL 0.83-4.51 [facility] Automated lymphocyte count a s percentage of total leukocytesOrdered By: Avery Berry on 07-24-2023 Lymphocytes/100 WBC Auto (Unsp spec) 34.1 % 19-41 [facility] Basophil percentageOrdered B y: Avery Berry on 07-24-2023 Basophils/100 WBC (Bld) 0.9 % 0-1 [facility] Bilirubin [Mass/Vol] 0.60 mg/dL 0.20-1.00 [facility] Comment on above: For patients on eltr ombopag therapy, use of Dimension [place] TBIL is not recommended. Chloride [Moles/Vol] 102 mmol/L 98-107 [facility] Cholesterol [Mass/Vol] 210 mg/dL <200 [facility] Comment on above: <200 mg/dL Desirable 200-240 mg/dL Borderline >240 mg/dL High Risk Eosinophils/100 WBC (Bld) 1.8 % 0-5 [facility] Glucose [Mass/Vol] 99 mg/dL 74-106 [facility] Hemoglobin (Bld) [Mass/Vol] 16.4 g/dL 13.0-16.5 [facility] Monocytes/100 WBC (Bld) 11.1 % 0-10 [facility] Neutrophils (Bld) [#/Vol] 4.7 10*3/uL 2.0-7.7 [facility] Neutrophils/100 WBC (Bld) 51.7 % 47-70 [facility] Potassium [Moles/Vol] 3.4 mmol/L 3.5-5.1 [facility] Protein [Mass/Vol] 7.9 g/dL 6.4-8.2 [facility] Sodium [Moles/Vol] 137 mmol/L 136-145 [facility] Triglyceride [Mass/Vol] 313 mg/dL <199 [facility] Comment on above: The drugs N-Acetylcy steine and Metamizole may falsely depress this assay.Serum Triglycerides Reference Interval Normal <150 mg/dL Borderline high 150 - 199 mg/dL High 200 - 499 mg/dL Very High > or = 500 mg/dL WBC (Bld) [#/Vol] 9.1 10*3/uL 4.4-11.0 [facility] Determination of erythrocyte mean corpuscular volume (MCV)Ordered By: Avery Berry on 07-24-2023 MCV (RBC) [Entitic vol] 80.6 fL 80-94 [facility] Erythrocyte distribution wid th ratioOrdered By: Avery Berry on 07-24-2023 Erythrocyte distribution width (RBC) [Ratio] 13.2 % 11.6-14.6 [facility] Erythrocyte distribution wid th standard deviationOrdered By: Avery Berry on 07-24-2023 Erythrocyte distribution width (RBC) [Entitic vol] 38.0 fL 35.1-43.9 [facility] Hematocrit Auto (Bld) [Volum e fraction]Ordered By: Avery Berry on 07-24-2023 Hematocrit (Bld) [Volume fraction] 49.5 % 40-54 [facility] Immature granulocytes/100 WB C Auto (Bld)Ordered By: Avery Berry on 07-24-2023 Immature granulocytes/100 WBC (Bld) 0.400 % 0.0-0.9 [facility] Comment on above: IG% - Immature Granu locytes (promyelocytes, myelocytes and metamyelocytes) > 1% indicates that a LEFT SHIFT is Present. Laboratory - Chemistry and C hemistry - challengeOrdered By: Avery Berry on 07-24-2023 Albumin/Globulin [Mass ratio] 1.1 {ratio} 0.9-2.4 [facility] ALP [Catalytic activity/Vol] 76 U/L 45-117 [facility] ALT [Catalytic activity/Vol] 32 U/L 16-61 [facility] Cholesterol in HDL [Mass/Vol] 35 mg/dL >40 [facility] Comment on above: The drugs N-Acetylcy steine and Metamizole may falsely depress this assay. Reference Range HDL <40 mg/dL Low HDL Cholesterol HDL >or= 60 mg/dL High HDL Cholesterol Cholesterol in LDL [Mass/Vol] 112 mg/dL 0-130 [facility] CO2 [Moles/Vol] 25.0 mmol/L 21.0-32.0 [facility] Globulin (S) [Mass/Vol] 3.7 g/dL 2.2-4.2 [facility] Urea nitrogen/Creatinine [Mass ratio] 12.7 mg/mg 10-20 [facility] - Hematology and Cell countsOrdered By: Avery Berry on 07-24-2023 MCH (RBC) [Entitic mass] 26.7 pg 27.0-32.0 [facility] MCHC (RBC) [Mass/Vol] 33.1 g/dL 32-36 [facility] Nucleated RBC/100 WBC (Bld) [Ratio] 0 % 0-5 [facility] Platelet mean volume (Bld) [Entitic vol] 10.2 fL 6.2-12.0 [facility] Platelets (Bld) [#/Vol] 335 10*3/uL 150-450 [facility] No Panel InformationOrdered By: Avery Berry on 07-24-2023 Estimated GFR (MDRD) Amer 108 mL/min >60 [facility] Comment on above: GFR Calc Estimated GFR (MDRD) Non-Af Amer 89 mL/min >60 [facility] Comment on above: Non- GFR Calc Prostate Specific Antigen Screen 0.72 ng/mL 0.00-4.00 [facility] Comment on above: This test was perfor med using the TPSA assay method for the[employer] chemistry system. Values obtained with differentassay methods cannot be used interchangably.When changing PSA assays in the course of monitoring apatient, additional sequential testing should be carriedout to confirm baseline values. VLDL Cholesterol 63 mg/dL 5-40 [facility] RBC Auto (Bld) [#/Vol]Ordere d By: Avery Berry on 07-24-2023 RBC (Bld) [#/Vol] 6.14 10*6/uL 4.6-6.2 [facility] Serum or plasma calcium yessi urement (mass/volume)Ordered By: Avery Berry on 07-24-2023 Calcium [Mass/Vol] 9.4 mg/dL 8.5-10.1 [facility] Serum or plasma creatinine m easurement (mass/volume)Ordered By: Avery Berry on 07-24-2023 Creatinine [Mass/Vol] 0.95 mg/dL 0.70-1.30 [facility] Comment on above: The validity of the calculated GFR & GFRAA in patients over 70 years has not been determined. Clinical correlation is essential. Serum or plasma urea nitroge n measurement (mass/volume)Ordered By: Avery Berry on 07-24-2023 Urea nitrogen [Mass/Vol] 12 mg/dL 7-18 [facility] Thin prep Papanicolaou smear with manual screeningOrdered By: Avery Berry on 07-24-2023 Thin prep Papanicolaou smear with manual screening 4.2 g/dL 3.2-5.0 [facility] Thin prep Papanicolaou smear with manual screening 21 U/L 15-37 [facility] Thin prep Papanicolaou smear with manual screening 10 5-15 [facility] Whole blood hemoglobin A1c/t otal hemoglobin ratio (mass fraction)Ordered By: Avery Berry on 07-24-2023 HbA1c (Bld) [Mass fraction] 5.5 % 3.8-5.6 [facility] Comment on above: Normal < 5.7 % Predi abetic 5.7 - 6.4 % Diabetic >or= 6.5 % Please note range changes. Absolute lymphocyte countOrd ered By: Dr. Zamora on 04-18-2022 Lymphocytes Auto (Unsp spec) [#/Vol] 2.94 10*3/uL 0.83-4.51 [facility] Basophil percentageOrdered B y: Dr. Zamora on 04-18-2022 Basophils/100 WBC (Bld) 0.8 % 0-1 [facility] Bilirubin [Mass/Vol] 0.40 mg/dL 0.20-1.00 [facility] Comment on above: For patients on eltr ombopag therapy, use of Dimension [place] TBIL is not recommended. Chloride [Moles/Vol] 103 mmol/L 98-107 [facility] Cholesterol [Mass/Vol] 204 mg/dL <200 [facility] Comment on above: <200 mg/dL Desirable 200-240 mg/dL Borderline >240 mg/dL High Risk Eosinophils/100 WBC (Bld) 2.3 % 0-5 [facility] Glucose [Mass/Vol] 87 mg/dL 74-106 [facility] Neutrophils (Bld) [#/Vol] 5.2 10*3/uL 2.0-7.7 [facility] Neutrophils/100 WBC (Bld) 54.6 % 47-70 [facility] Potassium [Moles/Vol] 3.8 mmol/L 3.5-5.1 [facility] Protein [Mass/Vol] 8.0 g/dL 6.4-8.2 [facility] Sodium [Moles/Vol] 138 mmol/L 136-145 [facility] Triglyceride [Mass/Vol] 246 mg/dL <199 [facility] Comment on above: The drugs N-Acetylcy steine and Metamizole may falsely depress this assay.Serum Triglycerides Reference Interval Normal <150 mg/dL Borderline high 150 - 199 mg/dL High 200 - 499 mg/dL Very High > or = 500 mg/dL WBC (Bld) [#/Vol] 9.5 10*3/uL 4.4-11.0 [facility] Blood erythrocytes count (nu mber/volume)Ordered By: Dr. Zamora on 04-18-2022 RBC (Bld) [#/Vol] 6.32 10*6/uL 4.6-6.2 [facility] Blood hemoglobin measurement (mass/volume)Ordered By: Dr. Zamora on 04-18-2022 Hemoglobin (Bld) [Mass/Vol] 17.0 g/dL 13.0-16.5 [facility] Blood lymphocytes/100 leukoc ytesOrdered By: Dr. Zamora on 04-18-2022 Lymphocytes/100 WBC (Bld) 30.9 % 19-41 [facility] Blood monocytes/100 leukocyt esOrdered By: Dr. Zamora on 04-18-2022 Monocytes/100 WBC (Bld) 10.8 % 0-10 [facility] Blood platelet mean volumeOr dered By: Dr. Zamora on 04-18-2022 Platelet mean volume (Bld) [Entitic vol] 10.6 fL 6.2-12.0 [facility] Determination of erythrocyte mean corpuscular volume (MCV)Ordered By: Dr. Zamora on 04-18-2022 MCV (RBC) [Entitic vol] 81.3 fL 80-94 [facility] Hematocrit Auto (Bld) [Volum e fraction]Ordered By: Dr. Zamora on 04-18-2022 Hematocrit (Bld) [Volume fraction] 51.4 % 40-54 [facility] - Chemistry and C hemistry - challengeOrdered By: Dr. Zamora on 04-18-2022 ALP [Catalytic activity/Vol] 84 U/L 45-117 [facility] ALT [Catalytic activity/Vol] 39 U/L 16-61 [facility] CO2 [Moles/Vol] 27.0 mmol/L 21.0-32.0 [facility] Globulin (S) [Mass/Vol] 3.7 g/dL 2.2-4.2 [facility] Urea nitrogen/Creatinine [Mass ratio] 11.6 mg/mg 10-20 [facility] - Hematology and Cell countsOrdered By: Dr. Zamora on 04-18-2022 Erythrocyte distribution width (RBC) [Entitic vol] 37.9 fL 35.1-43.9 [facility] Erythrocyte distribution width (RBC) [Ratio] 13.0 % 11.6-14.6 [facility] Immature granulocytes/100 WBC (Bld) 0.600 % 0.0-0.9 [facility] Comment on above: IG% - Immature Granu locytes (promyelocytes, myelocytes and metamyelocytes) > 1% indicates that a LEFT SHIFT is Present. MCH (RBC) [Entitic mass] 26.9 pg 27.0-32.0 [facility] Nucleated RBC/100 WBC (Bld) [Ratio] 0 % 0-5 [facility] MCHC Auto (RBC) [Mass/Vol]Or dered By: Dr. Zamora on 04-18-2022 MCHC (RBC) [Mass/Vol] 33.1 g/dL 32-36 [facility] No Panel InformationOrdered By: Dr. Zamora on 04-18-2022 Estimated GFR (MDRD) Amer 108 mL/min >60 [facility] Comment on above: GFR Calc Estimated GFR (MDRD) Non-Af Amer 89 mL/min >60 [facility] Comment on above: Non- GFR Calc Thyroid Stimulating Hormone (TSH) 2.55 uIU/mL 0.358-3.74 [facility] Platelets bldOrdered By: Dr. Zamora on 04-18-2022 Platelets (Bld) [#/Vol] 319 10*3/uL 150-450 [facility] Serum or plasma albumin yessi urement (mass/volume)Ordered By: Dr. Zamora on 04-18-2022 Albumin [Mass/Vol] 4.3 g/dL 3.2-5.0 [facility] Serum or plasma albumin/glob ulin mass ratioOrdered By: Dr. Zamora on 04-18-2022 Albumin/Globulin [Mass ratio] 1.2 {ratio} 0.9-2.4 [facility] Serum or plasma calcium yessi urement (mass/volume)Ordered By: Dr. Zamora on 04-18-2022 Calcium [Mass/Vol] 9.4 mg/dL 8.5-10.1 [facility] Serum or plasma cholesterol in HDL measurement (mass/volume)Ordered By: Dr. Zamora on 04-18-2022 Cholesterol in HDL [Mass/Vol] 36 mg/dL >40 [facility] Comment on above: The drugs N-Acetylcy steine and Metamizole may falsely depress this assay. Reference Range HDL <40 mg/dL Low HDL Cholesterol HDL >or= 60 mg/dL High HDL Cholesterol Serum or plasma cholesterol in VLDL measurement (mass/volume)Ordered By: Dr. Zamora on 04-18-2022 Cholesterol in VLDL [Mass/Vol] 49 mg/dL 5-40 [facility] Serum or plasma creatinine m easurement (mass/volume)Ordered By: Dr. Zamora on 04-18-2022 Creatinine [Mass/Vol] 0.95 mg/dL 0.70-1.30 [facility] Comment on above: The validity of the calculated GFR & GFRAA in patients over 70 years has not been determined. Clinical correlation is essential. Serum or plasma low density lipoprotein (LDL) cholesterol measurement (mass/volume)Ordered By: Dr. Zamora on 04-18-2022 Cholesterol in LDL [Mass/Vol] 119 mg/dL 0-130 [facility] Serum or plasma urea nitroge n measurement (mass/volume)Ordered By: Dr. Zamora on 04-18-2022 Urea nitrogen [Mass/Vol] 11 mg/dL 7-18 [facility] Thin prep Papanicolaou smear with manual screeningOrdered By: Dr. Zamora on 04-18-2022 Thin prep Papanicolaou smear with manual screening 20 U/L 15-37 [facility] Thin prep Papanicolaou smear with manual screening 8 5-15 [facility] Whole blood hemoglobin A1c/t otal hemoglobin ratio (mass fraction)Ordered By: Dr. Zamora on 04-18-2022 HbA1c (Bld) [Mass fraction] 5.6 % 3.8-5.6 [facility] Comment on above: Normal < 5.7 % Predi abetic 5.7 - 6.4 % Diabetic >or= 6.5 % Please note range changes. Laboratory - Microbiology an d Antimicrobial susceptibilityOrdered By: Dr. Zamora on 04-09-2022 SARS-CoV-2 (COVID-19) RNA SHANTA+probe Ql (Unsp spec) Not detected Not Detect [facility] Comment on above: Normal Reference Ran ge: Not DetectedMethod:(RT-PCR) real-time reverse transcriptase PCRLuminex Stamplay Instrument*The Food and Drug Administration (FDA) has issued an Emergency Use Authorization (EAU) for the Stamplay SARS-CoV-2 Assay for the rapid detection of [...] or has had recent exposure. MISCon 11-02-2020 [facility]. Send Out See Comments [facility] [place] Comment on above: Order Comment: HLA B -27 Result Comment: Comp lete reference lab report scanned to EMR. Performed By: #### A DIFF, ANEU, CBC, BMP, LIPID #### [facility] [address] [place], [place] [address] #### GFR #### [address] [address] CCPon 11-01-2020 Cyclic Citrullinated Peptide <20.0 Normal <=20.0 [facility] [place] Comment on above: Result Comment: Cycl ic [...] These test results were obtained with the RecoupVA Quanta Lite CCP3 IgG TONYA. Anti-CCP values obtained with different manufacturers' assay methods may not be used interchangeably. Performed By: #### A DIFF, ANEU, CBC, BMP, LIPID #### [place] [address] #### GFR #### [place] [address] RFon 10-29-2020 Rheumatoid Factor <6.0 Normal <=6.0 [facility] [place] Comment on above: Result Comment: RF I [...] tests. These results were obtained with the Advestigo QUANTA Lite RF IgM TONYA. RF IgM values obtained with different manufacturers' assay methods may not be used interchangeably. The magnitude of the reported IgM levels cannot be correlated to an endpoint titer. Performed By: #### A DIFF, ANEU, CBC, BMP, LIPID #### [place] [address] #### GFR #### [place] [address] .ANATon 10-27-2020 PATO Pattern 1 Speckled Normal [facility] [place] Comment on above: Result Comment: At [facility], an PATO titer of less than 160 is not considered suggestive of significant rheumatoid disease. If clinical suspicion is high, suggest repeat testing in 1-2 months. Performed By: #### A DIFF, ANEU, CBC, BMP, LIPID #### [place] [address] #### GFR #### [place] [address] PATO Titer 1 40 Normal [facility] [place] Comment on above: Performed By: #### A DIFF, ANEU, CBC, BMP, LIPID #### [address] [address] #### GFR #### [address] [address] ANAon 10-27-2020 PATO See Titer Normal Neg 40 [facility] [place] Comment on above: Result Comment: PATO Screen and Titer methodology is an immunofluorescent technique utilizing Hep2 Substrate. Performed By: #### A DIFF, ANEU, CBC, BMP, LIPID #### [address] [address] #### GFR #### [address] [address] .GFRon 10-26-2020 GFR Non- 103 ml/min/1.73sqm Normal [facility] [place] Comment on above: Result Comment: GFR Population [...] A DIFF, ANEU, CBC, BMP, LIPID #### [address] [address] #### GFR #### [address] [address] GFR 125 ml/min/1.73sqm Normal [facility] [place] Comment on above: Result Comment: GFR Population [...] A DIFF, ANEU, CBC, BMP, LIPID #### [place] [address] #### GFR #### [address] [address] CMPon 10-26-2020 Albumin Level 4.5 G/dL Normal 3.5-5.0 [facility] [place] Comment on above: Performed By: #### A DIFF, ANEU, CBC, BMP, LIPID #### [place] [address] #### GFR #### [place] [address] Albumin/Globulin [Mass ratio] 1.5 {ratio} Normal 1.1-2.5 [facility] [place] Comment on above: Performed By: #### A DIFF, ANEU, CBC, BMP, LIPID #### [place] [address] #### GFR #### [address] [address] ALP [Catalytic activity/Vol] 72 U/L Normal 40-135 [facility] [place] Comment on above: Performed By: #### A DIFF, ANEU, CBC, BMP, LIPID #### [address] [address] #### GFR #### [address] [address] ALT [Catalytic activity/Vol] 32 U/L Normal 16-63 [facility] [place] Comment on above: Performed By: #### A DIFF, ANEU, CBC, BMP, LIPID #### [place] [address] #### GFR #### [address] [address] AST [Catalytic activity/Vol] 22 U/L Normal 10-40 [facility] [place] Comment on above: Performed By: #### A DIFF, ANEU, CBC, BMP, LIPID #### [address] [address] #### GFR #### [address] [address] Bili Total 0.6 mg/dL Normal 0.2-1.0 [facility] [place] Comment on above: Result Comment: Use of this assay is not recommended for patients undergoing treatment with eltrombopag due to the potential for falsely elevated results. Performed By: #### A DIFF, ANEU, CBC, BMP, LIPID #### [address] [address] #### GFR #### [address] [address] BUN/Creatinine Ratio 16 ratio Normal 7-27 [facility] ([place] Comment on above: Performed By: #### A DIFF, ANEU, CBC, BMP, LIPID #### [address] [address] #### GFR #### [address] [address] Calcium [Mass/Vol] 9.3 mg/dL Normal 8.4-10.2 [facility] ([place] Comment on above: Performed By: #### A DIFF, ANEU, CBC, BMP, LIPID #### [address] [address] #### GFR #### [address] [address] Chloride [Moles/Vol] 103 mmol/L Normal 98-107 [facility] ([place] Comment on above: Performed By: #### A DIFF, ANEU, CBC, BMP, LIPID #### [address] [address] #### GFR #### [address] [address] CO2 [Moles/Vol] 30 mmol/L High 22-29 [facility] [place] Comment on above: Performed By: #### A DIFF, ANEU, CBC, BMP, LIPID #### [address] [address] #### GFR #### [address] [address] Creatinine [Mass/Vol] 0.80 mg/dL Normal 0.70-1.30 [facility] ([place] Comment on above: Performed By: #### A DIFF, ANEU, CBC, BMP, LIPID #### [address] [address] #### GFR #### [address] [address] Electrolyte Balance 8.0 mEq/L Normal [facility] ([place] Comment on above: Performed By: #### A DIFF, ANEU, CBC, BMP, LIPID #### [address] [address] #### GFR #### [address] [address] Globulin 3.1 G/dL Normal [facility] [place] Comment on above: Performed By: #### A DIFF, ANEU, CBC, BMP, LIPID #### [address] [address] #### GFR #### [address] [address] Glucose [Mass/Vol] 96 mg/dL Normal 70-105 [facility] ([place] Comment on above: Performed By: #### A DIFF, ANEU, CBC, BMP, LIPID #### [address] [address] #### GFR #### [address] [address] Potassium [Moles/Vol] 4.4 mmol/L Normal 3.5-5.1 [facility] ([place] Comment on above: Performed By: #### A DIFF, ANEU, CBC, BMP, LIPID #### [address] [address] #### GFR #### [address] [address] Sodium [Moles/Vol] 141 mmol/L Normal 136-145 [facility] ([place] Comment on above: Performed By: #### A DIFF, ANEU, CBC, BMP, LIPID #### [address] [address] #### GFR #### [place] [address] Total Protein 7.6 G/dL Normal 6.4-8.2 [facility] [place] Comment on above: Performed By: #### A DIFF, ANEU, CBC, BMP, LIPID #### [place] [address] #### GFR #### [address] [address] Urea nitrogen [Mass/Vol] 13 mg/dL Normal 7-18 [facility] [place] Comment on above: Performed By: #### A DIFF, ANEU, CBC, BMP, LIPID #### [place] [address] #### GFR #### [place] [address] CRPon 10-26-2020 CRP [Mass/Vol] mg/L Normal 0.0-0.9 [facility] [place] Comment on above: Performed By: #### A DIFF, ANEU, CBC, BMP, LIPID #### [place] [address] #### GFR #### [place] [address] ESRon 10-26-2020 Erythrocyte Sed Rate 2 mm/hr Normal 0-15 [facility] ([place] Comment on above: Performed By: #### A DIFF, ANEU, CBC, BMP, LIPID #### [place] [address] #### GFR #### [place] [address] XR SPINE LUMBAR AP/LAT/FLEX/ EXTon 07-29-2021 XR SPINE LUMBAR AP/LAT/FLEX/EXT ORIGINAL EXAMINATION: 5 [...] Date: 10/26/2020 4:54:24 PM Ordering Provider: HELLEN [facility] ([place] .Auto Diffon 10-23-2020 Basophil, Absolute 0.10 10 3/mcL Normal 0.00-0.19 [facility] ([place] Comment on above: Performed By: #### A DIFF, ANEU, CBC, BMP, LIPID #### [place] [address] [address] #### GFR #### [facility] [address] [place] [address] Basophils/100 WBC (Bld) 0.8 % Normal 0.0-2.5 [facility] ([place]) Comment on above: Performed By: #### A DIFF, ANEU, CBC, BMP, LIPID #### [place] [address] #### GFR #### [address] [address] Eosinophil, Absolute 0.20 10 3/mcL Normal 0.00-0.40 A [facility] ([place] Comment on above: Performed By: #### A DIFF, ANEU, CBC, BMP, LIPID #### [place] [address] #### GFR #### [address] [address] Eosinophils/100 WBC (Bld) 2.8 % Normal 0.0-7.0 [facility] [place] Comment on above: Performed By: #### A DIFF, ANEU, CBC, BMP, LIPID #### [place] [address] #### GFR #### [address] [address] Lymphocyte, Absolute 2.30 10 3/mcL Normal 0.77-3.85 A [facility] ([place]) Comment on above: Performed By: #### A DIFF, ANEU, CBC, BMP, LIPID #### [place] [address] #### GFR #### [address] [address] Lymphocytes/100 WBC (Bld) 30.3 % Normal 10.0-50.0 [facility] [place] Comment on above: Performed By: #### A DIFF, ANEU, CBC, BMP, LIPID #### [place] [address] #### GFR #### [address] [address] Monocyte, Absolute 0.90 10 3/mcL Normal 0.15-1.00 [facility] ([place] Comment on above: Performed By: #### A DIFF, ANEU, CBC, BMP, LIPID #### [place] [address] #### GFR #### [address] [address] Monocytes/100 WBC (Bld) 12.5 % Normal 1.7-13.0 [facility] ([place] Comment on above: Performed By: #### A DIFF, ANEU, CBC, BMP, LIPID #### [address] [address] #### GFR #### [address] [address] Neutrophils/100 WBC (Bld) 53.6 % Normal 37.0-80.0 [facility] [place] Comment on above: Performed By: #### A DIFF, ANEU, CBC, BMP, LIPID #### [address] [address] #### GFR #### [address] [address] .GFRon 10-23-2020 GFR 114 ml/min/1.73sqm Normal [facility] [place] Comment on above: Result Comment: GFR Population [...] A DIFF, ANEU, CBC, BMP, LIPID #### [address] [address] #### GFR #### [address] [address] GFR Non- 94 ml/min/1.73sqm Normal [facility] [place] Comment on above: Result Comment: GFR Population [...] A DIFF, ANEU, CBC, BMP, LIPID #### [address] [address] #### GFR #### [address] [address] .NEUABSon 10-23-2020 Neutrophil, Absolute 4.10 10 3/mcL Normal 2.85-6.16 A [facility] ([place] Comment on above: Performed By: #### A DIFF, ANEU, CBC, BMP, LIPID #### [address] [address] #### GFR #### [address] [address] BMPon 10-23-2020 BUN/Creatinine Ratio 14 ratio Normal 7-27 [facility] ([place] Comment on above: Performed By: #### A DIFF, ANEU, CBC, BMP, LIPID #### [address] [address] #### GFR #### [address] [address] Calcium [Mass/Vol] 9.1 mg/dL Normal 8.4-10.2 [facility] ([place] Comment on above: Performed By: #### A DIFF, ANEU, CBC, BMP, LIPID #### [address] [address] #### GFR #### [address] [address] Chloride [Moles/Vol] 111 mmol/L High 98-107 [facility] ([place] Comment on above: Performed By: #### A DIFF, ANEU, CBC, BMP, LIPID #### [address] [address] #### GFR #### [address] [address] CO2 [Moles/Vol] 27 mmol/L Normal 22-29 [facility] [place] Comment on above: Performed By: #### A DIFF, ANEU, CBC, BMP, LIPID #### [address] [address] #### GFR #### [address] [address] Creatinine [Mass/Vol] 0.87 mg/dL Normal 0.70-1.30 [facility] ([place] Comment on above: Performed By: #### A DIFF, ANEU, CBC, BMP, LIPID #### [place] [address] #### GFR #### [address] [address] Electrolyte Balance 10.0 mEq/L Normal [facility] ([place] Comment on above: Performed By: #### A DIFF, ANEU, CBC, BMP, LIPID #### [address] [address] #### GFR #### [address] [address] Glucose [Mass/Vol] 99 mg/dL Normal 70-105 [facility] ([place] Comment on above: Performed By: #### A DIFF, ANEU, CBC, BMP, LIPID #### [address] [address] #### GFR #### [address] [address] Potassium [Moles/Vol] 4.6 mmol/L Normal 3.5-5.1 [facility] ([place] Comment on above: Performed By: #### A DIFF, ANEU, CBC, BMP, LIPID #### [address] [place] [address] #### GFR #### [address] [address] Sodium [Moles/Vol] 148 mmol/L High 136-145 [facility] ([place] Comment on above: Performed By: #### A DIFF, ANEU, CBC, BMP, LIPID #### [address] [address] #### GFR #### [address] [address] Urea nitrogen [Mass/Vol] 12 mg/dL Normal 7-18 [facility] [place] Comment on above: Performed By: #### A DIFF, ANEU, CBC, BMP, LIPID #### [place] [id number] #### GFR #### [place] [address] CBCon 10-23-2020 Erythrocyte distribution width (RBC) [Ratio] 13.2 % Normal 11.5-14.5 [facility] [place] Comment on above: Performed By: #### A DIFF, ANEU, CBC, BMP, LIPID #### [address] [address] #### GFR #### [address] [address] Hematocrit (Bld) [Volume fraction] 44.3 % Normal 42.0-52.0 [facility] [place] Comment on above: Performed By: #### A DIFF, ANEU, CBC, BMP, LIPID #### [address] [address] #### GFR #### [address] [address] Hgb 15.2 G/dL Normal 14.0-18.0 [facility] [place] Comment on above: Performed By: #### A DIFF, ANEU, CBC, BMP, LIPID #### [address] [address] #### GFR #### [address] [address] MCH (RBC) [Entitic mass] 29.0 pg Normal 27.0-31.2 [facility] [place] Comment on above: Performed By: #### A DIFF, ANEU, CBC, BMP, LIPID #### [place] [address] #### GFR #### [place] [address] MCHC 34.4 G/dL Normal 31.8-35.4 [facility] [place] Comment on above: Performed By: #### A DIFF, ANEU, CBC, BMP, LIPID #### [place] [address] #### GFR #### [place] [address] MCV (RBC) [Entitic vol] 84.3 fL Normal 80.0-94.0 A [facility] ([place] Comment on above: Performed By: #### A DIFF, ANEU, CBC, BMP, LIPID #### [place] [address] #### GFR #### [place] [address] Platelet 224 10 3/mcL Normal 130-400 [facility] [place] Comment on above: Performed By: #### A DIFF, ANEU, CBC, BMP, LIPID #### [place] [address] #### GFR #### [place] [address] Platelet mean volume (Bld) [Entitic vol] 8.3 fL Normal 7.4-10.4 [facility] [place] Comment on above: Performed By: #### A DIFF, ANEU, CBC, BMP, LIPID #### [place] [address] #### GFR #### [place] [address] RBC 5.25 10 6/mcL Normal 4.04-6.13 [facility] [place] Comment on above: Performed By: #### A DIFF, ANEU, CBC, BMP, LIPID #### [address] [address] #### GFR #### [address] [address] WBC 7.50 10 3/mcL Normal 4.60-10.80 [facility] [place] Comment on above: Performed By: #### A DIFF, ANEU, CBC, BMP, LIPID #### [place] [address] #### GFR #### [address] [address] LIPIDon 10-23-2020 Cholesterol [Mass/Vol] 211 mg/dL High 0-200 [facility] ([place] Comment on above: Result Comment: Chol esterol Reference Interval: Less than 200 Desirable 200-239 Borderline high risk 240 and above High risk Performed By: #### A DIFF, ANEU, CBC, BMP, LIPID #### [place] [address] #### GFR #### [address] [address] Cholesterol in HDL [Mass/Vol] 38 mg/dL Low 40-60 [facility] [place] Comment on above: Performed By: #### A DIFF, ANEU, CBC, BMP, LIPID #### [place] [address] #### GFR #### [address] [address] Cholesterol in LDL [Mass/Vol] 142 mg/dL High 0-130 [facility] [place] Comment on above: Performed By: #### A DIFF, ANEU, CBC, BMP, LIPID #### [place] [address] #### GFR #### [address] [address] Triglyceride [Mass/Vol] 155 mg/dL High 0-150 [facility] ([place] Comment on above: Result Comment: Trig lyceride Reference Interval: Less than 150 Normal 150-199 Borderline high risk 200-499 High risk 500 or higher Very high risk Performed By: #### A DIFF, ANEU, CBC, BMP, LIPID #### [place] [id number] [place], [place] [address] #### GFR #### [address] [address] MRI BRAIN W/O CONTRASTon MRI BRAIN W/O [...] 10/23/2020 10:58:16 AM Ordering Provider: ELISA [facility] ([place]) .Auto Diffon 10-22-2020 Basophil, Absolute 0.10 10 3/mcL Normal 0.00-0.19 [facility] ([place] Comment on above: Performed By: #### A DIFF, ANEU, TROPHS, CBC, BMP #### [place] [address] #### GFR #### [address] [address] Basophils/100 WBC (Bld) 0.7 % Normal 0.0-2.5 [facility] ([place] Comment on above: Performed By: #### A DIFF, ANEU, TROPHS, CBC, BMP #### [place] [address] #### GFR #### [address] [address] Eosinophil, Absolute 0.20 10 3/mcL Normal 0.00-0.40 [facility] ([place]) Comment on above: Performed By: #### A DIFF, ANEU, TROPHS, CBC, BMP #### [place] [address] #### GFR #### [address] [address] Eosinophils/100 WBC (Bld) 2.7 % Normal 0.0-7.0 [facility] ([place]) Comment on above: Performed By: #### A DIFF, ANEU, TROPHS, CBC, BMP #### [place] [address] #### GFR #### [address] [address] Lymphocyte, Absolute 3.30 10 3/mcL Normal 0.77-3.85 [facility] ([place]) Comment on above: Performed By: #### A DIFF, ANEU, TROPHS, CBC, BMP #### [place] [address] #### GFR #### [address] [address] Lymphocytes/100 WBC (Bld) 40.0 % Normal 10.0-50.0 [facility] ([place] Comment on above: Performed By: #### A DIFF, ANEU, TROPHS, CBC, BMP #### [place] [address] #### GFR #### [address] [address] Monocyte, Absolute 0.90 10 3/mcL Normal 0.15-1.00 [facility] ([place] Comment on above: Performed By: #### A DIFF, ANEU, TROPHS, CBC, BMP #### [address] [address] #### GFR #### [address] [address] Monocytes/100 WBC (Bld) 11.1 % Normal 1.7-13.0 [facility] ([place] Comment on above: Performed By: #### A DIFF, ANEU, TROPHS, CBC, BMP #### [address] [address] #### GFR #### [address] [address] Neutrophils/100 WBC (Bld) 45.5 % Normal 37.0-80.0 [facility] [place] Comment on above: Performed By: #### A DIFF, ANEU, TROPHS, CBC, BMP #### [address] [address] #### GFR #### [address] [address] .GFRon 10-22-2020 GFR 108 ml/min/1.73sqm Normal [facility] [place] Comment on above: Result Comment: GFR Population [...] A DIFF, ANEU, CBC, BMP, LIPID #### [address] [address] #### GFR #### [address] [address] GFR Non- 89 ml/min/1.73sqm Normal [facility] [place] Comment on above: Result Comment: GFR Population [...] A DIFF, ANEU, CBC, BMP, LIPID #### [place] [address] #### GFR #### [address] [address] .NEUABSon 10-22-2020 Neutrophil, Absolute 3.80 10 3/mcL Normal 2.85-6.16 [facility] ([place] Comment on above: Performed By: #### A DIFF, ANEU, CBC, BMP, LIPID #### [place] [address] #### GFR #### [address] [address] BMPon 10-22-2020 BUN/Creatinine Ratio 11 ratio Normal 7-27 [facility] ([place] Comment on above: Performed By: #### A DIFF, ANEU, CBC, BMP, LIPID #### [address] [address] #### GFR #### [address] [address] Calcium [Mass/Vol] 9.3 mg/dL Normal 8.4-10.2 [facility] ([place] Comment on above: Performed By: #### A DIFF, ANEU, CBC, BMP, LIPID #### [address] [address] #### GFR #### [address] [address] Chloride [Moles/Vol] 106 mmol/L Normal 98-107 [facility] ([place] Comment on above: Performed By: #### A DIFF, ANEU, CBC, BMP, LIPID #### [address] [address] #### GFR #### [address] [address] CO2 [Moles/Vol] 30 mmol/L High 22-29 [facility] [place] Comment on above: Performed By: #### A DIFF, ANEU, CBC, BMP, LIPID #### [place] [address] #### GFR #### [address] [address] Creatinine [Mass/Vol] 0.91 mg/dL Normal 0.70-1.30 [facility] ([place] Comment on above: Performed By: #### A DIFF, ANEU, CBC, BMP, LIPID #### [address] [address] #### GFR #### [address] [address] Electrolyte Balance 9.0 mEq/L Normal [facility] ([place] Comment on above: Performed By: #### A DIFF, ANEU, CBC, BMP, LIPID #### [address] [address] #### GFR #### [address] [address] Glucose [Mass/Vol] 96 mg/dL Normal 70-105 [facility] ([place] Comment on above: Performed By: #### A DIFF, ANEU, CBC, BMP, LIPID #### [address] [address] #### GFR #### [address] [address] Potassium [Moles/Vol] 4.0 mmol/L Normal 3.5-5.1 [facility] ([place] Comment on above: Performed By: #### A DIFF, ANEU, CBC, BMP, LIPID #### [address] [address] #### GFR #### [address] [address] Sodium [Moles/Vol] 145 mmol/L Normal 136-145 [facility] ([place] Comment on above: Performed By: #### A DIFF, ANEU, CBC, BMP, LIPID #### [address] [address] #### GFR #### [address] [address] Urea nitrogen [Mass/Vol] 10 mg/dL Normal 7-18 [facility] [place] Comment on above: Performed By: #### A DIFF, ANEU, CBC, BMP, LIPID #### [address] [address] #### GFR #### [address] [address] CBCon 10-22-2020 Erythrocyte distribution width (RBC) [Ratio] 13.4 % Normal 11.5-14.5 [facility] [place] Comment on above: Performed By: #### A DIFF, ANEU, TROPHS, CBC, BMP #### [address] [address] #### GFR #### [address] [address] Hematocrit (Bld) [Volume fraction] 46.3 % Normal 42.0-52.0 [facility] [place] Comment on above: Performed By: #### A DIFF, ANEU, TROPHS, CBC, BMP #### [address] [address] #### GFR #### [address] [address] Hgb 16.0 G/dL Normal 14.0-18.0 [facility] [place] Comment on above: Performed By: #### A DIFF, ANEU, TROPHS, CBC, BMP #### [place] [address] #### GFR #### [place] [address] MCH (RBC) [Entitic mass] 28.7 pg Normal 27.0-31.2 [facility] [place] Comment on above: Performed By: #### A DIFF, ANEU, TROPHS, CBC, BMP #### [place] [address] #### GFR #### [place] [address] MCHC 34.6 G/dL Normal 31.8-35.4 [facility] [place] Comment on above: Performed By: #### A DIFF, ANEU, TROPHS, CBC, BMP #### [place] [address] #### GFR #### [place] [address] MCV (RBC) [Entitic vol] 82.7 fL Normal 80.0-94.0 [facility] ([place] Comment on above: Performed By: #### A DIFF, ANEU, TROPHS, CBC, BMP #### [place] [address] #### GFR #### [place] [address] Platelet 266 10 3/mcL Normal 130-400 [facility] [place] Comment on above: Performed By: #### A DIFF, ANEU, TROPHS, CBC, BMP #### [place] [address] #### GFR #### [place] [address] Platelet mean volume (Bld) [Entitic vol] 8.3 fL Normal 7.4-10.4 [facility] [place] Comment on above: Performed By: #### A DIFF, ANEU, TROPHS, CBC, BMP #### [address] [address] #### GFR #### [place] [address] RBC 5.60 10 6/mcL Normal 4.04-6.13 [facility] [place] Comment on above: Performed By: #### A DIFF, ANEU, TROPHS, CBC, BMP #### [place] [address] #### GFR #### [place] [address] WBC 8.30 10 3/mcL Normal 4.60-10.80 [facility] [place] Comment on above: Performed By: #### A DIFF, ANEU, TROPHS, CBC, BMP #### [place] [address] #### GFR #### [place] [address] CT HEAD OR BRAIN W/O CONTRAS Ton 10-22-2020 CT HEAD OR BRAIN W/O CONTRAST [...] 10/22/2020 5:18:30 AM Ordering Provider: SUBHASH ROBLEDO [facility] ([place] Troponin I High Sensitivity 5.3 ng/L Normal 0.0-76.2 [facility]) Comment on above: Performed By: #### T ROP #### [place] [address] Troponin I High Sensitivity 5.3 ng/L Normal 0.0-76.2 [facility]) Comment on above: Performed By: #### A DIFF, ANEU, CBC, BMP, LIPID #### [address] [address] #### GFR #### [place] [address] Troponin I High Sensitivity 5.6 ng/L Normal 0.0-76.2 [facility] Comment on above: Performed By: #### A DIFF, ANEU, CBC, BMP, LIPID #### [address] [address] #### GFR #### [place] [address] XR CHEST 1 VIEWon 10-22-2020 XR CHEST [...] 10/22/2020 5:09:07 AM Ordering Provider: SUBHASH ROBLEDO [facility] ([place]) XR SHOULDER MINIMUM 2 VIEWS LEFTon 10-22-2020 [...] 10/22/2020 5:44:21 AM Ordering Provider: SUBHASH ROBLEDO [facility] ([place]) Office Visit: OSAon 01-21-20 Documentation of current medications (procedure) Done Invalid Interpretation Code [facility] Work Phone: Protein mass conc Done Invalid Interpretation Code [facility] Work Phone: Tobacco smoking status FLIS Never smoker Invalid Interpretation Code [facility] Work Phone: Tobacco use [facility] Never smoker Invalid Interpretation Code [facility] Work Phone: 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 Tobacco use [facility] Never smoker Invalid Interpretation Code [facility] Work Phone: Vital Signs Date Time Vital Sign Value Performing Clinician Facility 05-16-2024 11:19-0500 Diastolic Blood Pressure Non-Invasive 84 mm[Hg] SONIDO DOWNEY MD [facility] 05-16-2024 11:19-0500 Heart rate 74 /min SONIDO DOWNEY MD [facility] 05-16-2024 11:19-0500 Respiratory rate 18 /min SONIDO DOWNEY MD [facility] 05-16-2024 11:19-0500 Systolic Blood Pressure Non-Invasive 140 mm[Hg] SONIDO DOWNEY MD [facility] 05-16-2024 09:57-0500 Body temperature 98.06 [degF] SONIDO DOWNEY MD [facility] 05-16-2024 09:57-0500 Diastolic Blood Pressure Non-Invasive 98 mm[Hg] SONIDO DOWNEY MD [facility] 05-16-2024 09:57-0500 Heart rate 76 /min SONIDO DOWNEY MD [facility] 05-16-2024 09:57-0500 Respiratory rate 16 /min SONIDO DOWNEY MD [facility] 05-16-2024 09:57-0500 Systolic Blood Pressure Non-Invasive 145 mm[Hg] SONIDO DOWNEY MD [facility] 10-26-2023 10:17-0400 Body temperature 98.2 [degF] Ramon Handley APRN.FELT COVERER Work Phone: [facility] 10-26-2023 10:17-0400 Body weight 109.4 kg Ramon Handley APRN.FELT COVERER Work Phone: [facility] 10-26-2023 10:17-0400 Diastolic blood pressure 97 mm[Hg] Ramon Handley APRN.FELT COVERER Work Phone: [facility] 10-26-2023 10:17-0400 Heart rate 83 /min Ramon Handley APRN.FELT COVERER Work Phone: [facility] 10-26-2023 10:17-0400 Respiratory rate 18 /min Ramon Handley APRN.FELT COVERER Work Phone: [facility] 10-26-2023 10:17-0400 SaO2% (BldA) [Mass fraction] 100 % Ramon Handley APRN.FELT COVERER Work Phone: [facility] 10-26-2023 10:17-0400 Systolic blood pressure 162 mm[Hg] Ramon Handley APRN.FELT COVERER Work Phone: [facility] 06-10-2023 06:26-0400 Body height 177.[address] Avery Berry Work Phone: [facility] 06-10-2023 06:26-0400 Body mass index (BMI) [Ratio] 33.3 kg/m2 Dr. Avery Berry Work Phone: [facility] 06-10-2023 06:26-0400 Body temperature 98.2 [degF] Dr. Avery Berry Work Phone: [facility] 06-10-2023 06:26-0400 Body weight 105.[address] Avery Berry Work Phone: [facility] 06-10-2023 06:26-0400 Diastolic blood pressure 101 mm[Hg] Dr. Avery Berry Work Phone: [facility] 06-10-2023 06:26-0400 Heart rate 94 /min Dr. Avery Berry Work Phone: [facility] 06-10-2023 06:26-0400 Respiratory rate 16 /min Dr. Avery Berry Work Phone: [facility] 06-10-2023 06:26-0400 SaO2% (BldA) [Mass fraction] 96 % Dr. Avery Berry Work Phone: [facility] 06-10-2023 06:26-0400 Systolic blood pressure 160 mm[Hg] Dr. Avery Berry Work Phone: [facility] 05-29-2022 08:23-0500 Body height 177.[address] Hellen Zamora Work Phone: [facility] 05-29-2022 08:23-0500 Body mass index (BMI) [Ratio] 33.3 kg/m2 Dr. Hellen Zamora Work Phone: [facility] 05-29-2022 08:23-0500 Body temperature 97.2 [degF] Dr. Hellen Zamora Work Phone: [facility] 05-29-2022 08:23-0500 Body weight 105.[address] Hellen Zamora Work Phone: [facility] 05-29-2022 08:23-0500 Diastolic blood pressure 111 mm[Hg] Dr. Hellen Zamora Work Phone: [facility] 05-29-2022 08:23-0500 Heart rate 83 /min Dr. Hellen Zamora Work Phone: [facility] 05-29-2022 08:23-0500 Respiratory rate 18 /min Dr. Hellen Zamora Work Phone: [facility] 05-29-2022 08:23-0500 SaO2% (BldA) [Mass fraction] 98 % Dr. Hellen Zamora Work Phone: [facility] 05-29-2022 08:23-0500 Systolic blood pressure 158 mm[Hg] Dr. Hellen Zamora Work Phone: [facility] 01-20-2017 07:15-0400 BMI (Body Mass Index) 33.28 kg/m2 Adelaida Singleton [facility] Work Phone: 01-20-2017 07:15-0400 Body Temperature 97.6 [degF] Adelaida Singleton [facility] Work Phone: 01-20-2017 07:15-0400 BP Diastolic 80 mm[Hg] Adelaida Singleton [facility] Work Phone: 01-20-2017 07:15-0400 BP Systolic 150 mm[Hg] Adelaida Singleton [facility] Work Phone: 01-20-2017 07:15-0400 Height 177.8 cm Adelaida Singleton [facility] Work Phone: 01-20-2017 07:15-0400 Pulse (Heart Rate) 80 /min Adelaida Singleton [facility] Work Phone: 01-20-2017 07:15-0400 Respiratory Rate 18 /min Adelaida Singleton [facility] Work Phone: 01-20-2017 07:15-0400 Weight 105.24 kg Adelaida BombBomb [facility] Work Phone: Encounters Encounter Date Encounter Type Care Provider Facility Start: 12-21-2024 ambulatory [facility] Facility:[facility] Start: 12-13-2024 ambulatory [facility] Facility:[facility] Start: 05-16-2024 End: 05-16-2024 Emergency department patient visit SONIDO DOWNEY MD [facility] Start: 10-26-2023 End: 10-26-2023 ambulatory HELLEN ZAMORA Facility:[facility] Start: 10-26-2023 End: 10-26-2023 Patient encounter procedure Ramon Handley APRN.CNP Work Phone: [facility] Comment on above: Acute otitis externa of right ear, unspecified type (Primary Dx); Cellulitis of right ear Start: 07-24-2023 End: 07-24-[address] Avery Berry Work Phone: [facility] Work Phone: Start: 07-24-2023 End: 07-24-[address] Avery Berry Work Phone: [facility] Start: 06-10-2023 End: 06-10-[address] Avery Berry Work Phone: [facility] [facility] Work Phone: Start: 05-30-2022 End: 05-30-[address] Hellen Zamora Work Phone: [facility] Work Phone: Start: 05-30-2022 End: 05-30-[address] Hellen Zamora Work Phone: [facility]-Radiology, [place] Start: 05-29-2022 End: 05-29-[address] Hellen Zamora Work Phone: [facility]-Pulmonary Medicine [facility] Start: 05-06-2022 End: 05-06-2022 ambulatory [facility] Work Phone: Start: 05-06-2022 End: 05-06-2022 Patient encounter procedure [facility]Sleep Lab Start: 04-18-2022 End: 04-18-2022 ambulatory [facility] Work Phone: Start: 04-18-2022 End: 04-18-2022 Patient encounter procedure [facility]-Laboratory, [facility] Start: 04-09-2022 End: 04-09-2022 ambulatory [facility] Work Phone: Start: 04-09-2022 End: 04-09-2022 Patient encounter procedure [facility]Laboratory, Specimen Start: 03-01-2020 Patient encounter procedure Facility:[facility] Start: 03-21-2016 End: 03-22-[address] Facility:[facility] Procedures Date Procedure Procedure Detail Performing Clinician Start: 05-30-2022 X-ray of cervical spine Dr. Hellen Zamora Work Phone: Start: 11-14-2020 Transesophageal echocardiography SONIDO DOWNEY MD Comment on above: No mass or vegetatio n in Aortic Valve Start: 03-22-2016 Lipid 1996 panel - S dannie or Plasma Ramon Handley APRN.CNP Work Phone: Prescription event monitoring SONIDO DOWNEY MD Structure of eye pro per (body structure) SONIDO DOWNEY MD Comment on above: torn tear duct Plan of Treatment Date Care Activity Detail Author Start: 02-05-2027 Urine microalbumin profile DTaP,Tdap,Td Vaccine (2 - Td or Tdap) [facility] Start: 11-30-2023 Influenza vaccination Influenza Vaccine (#1) [facility] Start: 11-29-2022 Covid-19 Vaccine () Covid-19 Vaccine () [facility] Start: 2022 Shingrix Vaccine (1 of 2) Shingrix Vaccine (1 of 2) [facility] Start: 03-22-2021 Lipid panel Lipid Screening [facility] Start: 03-22-2019 Diabetes Screening Diabetes Screening [facility] Start: 2017 Screening for malignant neoplasm of colon [facility] Start: 04-21-2017 End: 04-21-2017 Appointment Appointment [email or web address] Phone: Start: 01-21-2017 End: 01-21-2017 *MISC - Miscellaneous Lab Test #1 *MISC - Miscellaneous Lab Test #1 [email or web address] Phone: Start: 01-20-2017 End: 01-20-2017 *MISC - Miscellaneous Lab Test #1 *MISC - Miscellaneous Lab Test #1 [email or web address] Phone: Start: 01-20-2017 End: 01-20-2017 DMB DMB [email or web address] Phone: Start: 01-20-2017 End: 01-20-2017 Follow Up Appt 3 months Follow Up Appt 3 months [email or web address] Phone: Start: 01-20-2017 End: 01-20-2017 Appointment Appointment [email or web address] Phone: Start: 01-08-2017 End: 01-08-2017 Appointment Appointment [email or web address] Phone: Start: 09-18-1991 Hepatitis B Vaccine (1 of 3 - 19+ 3-dose series) Hepatitis B Vaccine (1 of 3 - 19+ 3-dose series) [facility] Start: 1990 Anxiety Screening Anxiety Screening [facility] Start: 1990 Depression Screening Depression Screening [facility] Start: 1990 Hepatitis C screening Hepatitis C Screening [facility] Start: 1990 HIV screening HIV Screening [facility] Immunizations Immunization Date Immunization Notes Care Provider Fa cility 05-16-2024 tetanus toxoid, redu sade diphtheria toxoid, and acellular pertussis vaccine, adsorbed SONIDO DOWNEY MD [facility] 02-05-2017 tetanus toxoid, redu sade diphtheria toxoid, and acellular pertussis vaccine, adsorbed SONIDO DOWNEY MD [facility] Payers Date Payer Category Payer Self-pay [id number] 2022 Unknown [id number] 2022 Unknown [id number] 1970 Unknown [id number] Private Health Insurance [facility] [id number] Unknown [id number] Unknown [facility] [id number] Unknown [id number] Unknown [id number] Social History Date Type Detail Facility Start: 04-05-2020 End: 06-10-2023 Tobacco smoking status FLIS Unknown if ever smoked [facility] Start: 1970 Sex Assigned At Male [facility] Start: 10-22-2020 End: 10-26-2023 Tobacco smoking status NHIS Never smoked tobacco [facility] Start: 10-26-2023 Tobacco use and exposure Smoke less tobacco non-user [facility] Start: 03-09-2020 End: 10-26-2023 History of Social function [facility] Start: 03-09-2020 End: 10-26-2023 Tobacco use panel [facility] National Score (1-10 0), lower number is lower risk Not on file [facility] Start: 1970 Sex Assigned At Not on file [facility] Sexual Orientation [facility] Start: 05-21-2018 Sex Male (finding) [facility] Functional Status Date Assessment Result Facility 05-16-2024 Functional Status Independent [facility] 05-16-2024 Functional Status ID band on [facility] Mental Status Date Assessment Result Facility 05-16-2024 Mental Status Orientation Oriented x 4 [facility] 05-16-2024 Mental Status [facility] Discharge instructions 05-16-2024 Note Date & Type [...] for signs of illness. (If the pet healthcare marketer won t allow this, contact your local [...] stopped after 5 minutes of firm pressure [phone] [employer]. [address] [place] [address], [place] [address]. All rights reserved. This information is not intended as a substitute for professional medical care. Always follow your healthcare professional's instructions. Follow Up Care 05/16/2024 09:35:35 With:HELLEN ANGELIAELIO Address: [address] [place] [id number] [facility] (1) When:2-4 days Comments:Schedule appointment as soon as possibleReturn to ED if symptoms worsenWash the wounds daily and apply antibiotic ointment and dressingFollow-up for any signs of infectionElevate Tylenol and Advil for pain [facility] Clinical Note 05-16-2024 Note Date & Type Note Facility 05-16-2024 Note Discharge Instructions Thank you for allowing [facility] to assist you with your healthcare needs. The following is important discharge information regarding your hospital visit. Diagnosis from Today's Visit Dog bite of hand What to Do Next Instructions from Your Care Team No qualifying data available. Post Acute Orders No qualifying data available. You Need to Schedule the Following Appointments Follow Up with HELLEN ZAMORA When:Within 2-4 days Where:[address] [place] [id number] (1) Additional Information: Schedule appointment as soon [...] for signs of illness. (If the pet healthcare marketer won t allow this, contact your local [...] stopped after 5 minutes of firm pressure [phone] [employer]. [address] [place] [address]. All rights reserved. This information is not intended as a substitute for professional medical care. Always follow your healthcare professional's instructions. Additional Information VACCINATE! IT SAVES LIVES! Members of the community who have not yet received the COVID-19 vaccine and would like to receive it can visit one of [facility] vaccine clinics. There are many vaccine clinic locations within the [facility]. For locations and available times, please visit [email or web address] It is important to note that some COVID mobile vaccine clinics are held outdoors and may be canceled in rainy or stormy conditions. To learn more about pediatric vaccinations (ages 5-11), we invite you to visit the [facility] webpage. [email or web address]/pages/[email or web address]-Sxbeb-Fccqycbwdrm-Frequently-Asked -Questions.html To learn more about the COVID-19 vaccine, we invite you to visit the CDC website for a list of frequently asked questions. https://www.cdc.gov/coronavirus/2019-n cov/vaccines/faq.html [facility] Patient Portal Access Instructions: Stay connected with your healthcare team and access your personal medical information anytime with the [facility] Patient Portal. If you would like a full copy of your medical records please contact the [facility] Medical Records Department Friday through Friday between 8a.m. and 4:30p.m. Please follow the directions below to access the portal: 1.Access the email account you provided upon registration to the [facility].2.Look for an invitation email from [facility].3.Open the email and access the invitation link: Accept Invitation to [facility].Fill in the required sanchez to create your account. Sign into [email or web address] [employer] with your username and password that you [...] you will allow to register on the [facility] Patient Portal for access to your information. You can also access the [facility] Patient Portal on the [employer]. Simply click on "Health Records" under "Health Data" and then click on the [facility] logo. HOW TO SAFELY DISPOSE OF PRESCRIPTION [...] Call your local pharmacy or go to [email or web address] to find one close to you.3.Make use of household items: Use cat litter or old coffee grounds to dispose medications if other options are not available. Mix your drugs with these household products, seal them in an airtight container and throw it into the garbage. Call [place]: [phone] to be sure your drugs can be [...] aware that I should contact my doctor. Patient/Line Department Supervisor Signature: _ Date/Time: Relationship to Patient: Witness Name/Signature: Date/Time: [facility] History of Present illness Narrative 10-26-2023 Ramon Handley APRN.[facility] - 10/26/2023 12:58 PM EDT Note Date [...] canal and external ear normal. Mouth/Throat: Lips: [place]. Mouth: Mucous membranes are moist. Pulmonary: Effort: [...] - CEPHALEXIN 500 MG CAPSULE Ramon Handley APRN.FELT COVERER documented in this encounter [facility] Evaluation + Plan note Note Date & Type Note Facility Evaluation + Plan note No data available for this section [facility] Evaluation note Note Date & Type Note Facility Evaluation note No assessment information availa [facility] Work Phone: Evaluation note Note Date & Type Note Facility Evaluation note Diagnosis Onset Date Obesity chronic MICHAEL (obstructive sleep apnea) [facility] Work Phone: Evaluation note Note Date & Type Note Facility Evaluation note Diagnosis Acute otitis externa of right ear, unspecified type- Primary Cellulitis of right ear documented in this encounter [facility] Summary Purpose Family History No Family History [...] section and content) DATE CREATED AUTHOR 09/24/2017 [facility] [facility] DATE CREATED AUTHOR AUTHOR'S ORGANIZ ATION 03/01/2020 [facility] DATE CREATED AUTHOR AUTHOR'S ORGANIZ ATION 11/18/2020 [facility] ([place]) DATE CREATED AUTHOR AUTHOR'S ORGANIZ ATION 10/26/2023 [facility] DATE CREATED AUTHOR AUTHOR'S ORGANIZ ATION 05/23/2024 [facility] DATE CREATED AUTHOR AUTHOR'S ORGANIZ ATION 12/17/2024 [facility] Goals (unrecognized section and content) Goals may [...] Role Status Dates Dr. Hellen Zamora DO Primary Care Provider, Attending Wilmar ratliff Active Team Status: Active Member Role Status Dates Dr. Hellen Zamora DO Family Provider Active Dr. Avery Berry DO Primary Care Provider Active Team Status: Inactive Member Role Status Dates Dr. Avery Berry DO Primary Care Prov ider, Attending Provider, Referring Provider Active Team Status: Inactive Member Role Status Dates Dr. Hellen aZmora DO Referring Provider Active Karon Norwood SLAUGHTERER RELIGIOUS RITUAL, SLAUGHTERER RELIGIOUS RITUAL-C Attending Provider Active Dr. Avery Berry DO Primary Care Provider Active Team Status: Inactive Member Role Status Dates Dr. Avery Berry DO Primary Care Provider, Referrin g Provider Active Dr. Jorge Matamoros DO Attending Provider Active Team Status: Inactive Member Role Status Dates Dr. Avery Berry DO Primary Care Provider, Attendin g Provider Active Individual Pension Consultant Relationship Specialty Start Date End Date Hellen Zamora DO [address] [place] [address] PCP - General Family Medicine 11/09/18 Source Comments (unrecognize d section and content) In the event this informatio n is protected by the Federal Confidentiality of Alcohol and Drug Abuse Patient Records regulations: The Federal rules restrict any use of the information to criminally investigate or prosecute any alcohol or drug abuse patient.[facility] Reason for Visit (unrecogniz ed section and [...] BE BASED ON THE PRIMARY CLINICAL RECORDS. [facility]. provides no warranty or guarantee of the accuracy or completeness of information in this document.
== END | disposition home or self-care (01) ==
LOC: US 10:49
PROVIDERS: PCP Family Medicine; Referring Provider Nurse Practitioner Family; Visit Provider Nurse Practitioner Family
DX: R10.11 Right upper quadrant pain (principal)
CPT/HCPCS: 76705

== ENCOUNTER → 2025-03-16 | Outpatient (CLI) | payer BC, SELFPAY ==
--- NOTE | 2025-03-16 10:40 | RAD_ITS ---
PROCEDURE: FOOT MIN 3 VIEWS 03/16/2025 REASON FOR EXAM: RULE OUT FRACTURE TECHNIQUE: Procedure Code: RADFO Modality: DX Procedure: FOOT MIN 3 VIEWS Laterality: Right COMPARISON: None. FINDINGS: No acute fracture or dislocation. Alignment is anatomic. Preserved joint spaces. Mild dorsal calcaneal enthesopathic spurring. No appreciable soft tissue swelling or unusual mineralization. RAD/Foot min 3 Views IMPRESSION: No acute fracture or dislocation. Reading Location: [id number]
== END | disposition home or self-care (01) ==
LOC: MTRAD 10:40
PROVIDERS: PCP Family Medicine; Referring Provider Nurse Practitioner Family; Visit Provider Nurse Practitioner Family
DX: M79.671 Pain in right foot (principal)
CPT/HCPCS: 73630